=== PATIENT | female | born 1965 | race Caucasian/White ===

== ENCOUNTER 2024-11-17 14:03 | Observation (INO) | payer OTHER, SELFPAY ==
[2024-11-17] VITALS (21 sets, daily range): BP systolic 100–141; BP diastolic 60–83; PULSE 54–85; RESP 10–31; TEMP 36.3–37.1; O2SAT 93–100; BMI 24.2; BMI 24.3
--- NOTE | 2024-11-17 14:23 | RAD_ITS ---
PROCEDURE: CHEST 1 VIEW (PORTABLE) 11/17/2024 REASON FOR EXAM: CHEST PAIN TECHNIQUE: Frontal view of the chest. COMPARISON: CT from 11/17/2024 FINDINGS: Bibasilar opacities likely imaging artifact from pectus excavatum. No definite focal consolidations. No pleural effusion or pneumothorax. Moderate cardiomegaly. Right shoulder calcific tendinopathy. RAD/Chest 1 View (Portable) IMPRESSION: Bibasilar opacities likely imaging artifact from pectus excavatum. No definite focal consolidations. Moderate cardiomegaly. Reading Location: [id number]
--- NOTE | 2024-11-17 14:23 | EKG12_ITS ---
Test Reason : REPEAT Blood Pressure : */* mmHG Vent. Rate : 51 BPM Atrial Rate : 51 BPM P-R Int : 158 ms QRS Dur : 74 ms QT Int : 460 ms P-R-T Axes : 72 90 72 degrees QTcB Int : 423 ms Sinus bradycardia Rightward axis Cannot rule out Septal infarct , age undetermined Abnormal ECG Confirmed by Alok Howard ([id number]), clinical editor YOLANDE PEREZ ([id number]) on 11/20/2024 11:48:12 AM Referred By: Lon Arrington Confirmed By: Alok Howard
--- NOTE | 2024-11-17 14:23 | EKG12_ITS ---
Test Reason : REPEAT Blood Pressure : */* mmHG Vent. Rate : 51 BPM Atrial Rate : 51 BPM P-R Int : 158 ms QRS Dur : 74 ms QT Int : 460 ms P-R-T Axes : 72 90 72 degrees QTcB Int : 423 ms Sinus bradycardia Rightward axis Cannot rule out Septal infarct , age undetermined Abnormal ECG Confirmed by Alok Howard ([id number]), offline editor YOLANDE PEREZ ([id number]) on 11/20/2024 11:48:12 AM Referred By: Lon Arrington Confirmed By: Alok Howard
--- NOTE | 2024-11-17 14:23 | RAD_ITS ---
PROCEDURE: CHEST 1 VIEW (PORTABLE) 11/17/2024 REASON FOR EXAM: CHEST PAIN TECHNIQUE: Frontal view of the chest. COMPARISON: CT from 11/17/2024 FINDINGS: Bibasilar opacities likely imaging artifact from pectus excavatum. No definite focal consolidations. No pleural effusion or pneumothorax. Moderate cardiomegaly. Right shoulder calcific tendinopathy. RAD/Chest 1 View (Portable) IMPRESSION: Bibasilar opacities likely imaging artifact from pectus excavatum. No definite focal consolidations. Moderate cardiomegaly. Reading Location: [id number]
--- NOTE | 2024-11-17 14:29 | ED.VIS.CHEST ---
HPI History of Present Illness Chief Complaint: Chest Pain Informant: patient and family Narrative Narrative: Here with family worsening chest pain. Started few months ago over last 2 weeks more frequently. States worse with exertion. Reports dyspnea with exertion. No pain down the arms. No nausea no diaphoresis. Seen her PCP reports an echocardiogram is ordered and pending next month. No history of stress test. Family history of [place] at the age of 70 denies tobacco. Hypertension hyperlipidemia. Denies diabetes. No known coronary disease history. No recent travel or surgeries. No history of PE or DVT. States will get lightheaded symptoms with legs giving out when chest symptoms occur. CVD Risk Factors: Positive for Hypertension and Hypercholesterolemia; Negative for Diabetes, Family History 1' </=55 or Smoking PE Risk Factors: Negative for Recent Travel/Surgery, Recent Immobilization or Prior DVT or PE [facility] Medical History no medical history Home Medications ?Medication ?Instructions ?Recorded ?Last Taken ?Type metoprolol succinate 50 mg 25 mg PO DAILY 11/17/24 11/17/24 History tablet,extended release 24 hr quetiapine 100 mg tablet 100 mg PO QHS 11/17/24 11/16/24 History rosuvastatin 10 mg tablet 10 mg PO DAILY 11/17/24 11/16/24 History venlafaxine 75 mg capsule,extended 75 mg PO QPM 11/17/24 11/16/24 History release 24 hr Allergy/AdvReac Type Severity Reaction Status Date / Time No Known Allergies Allergy Verified 11/17/24 14:04 Family History no significant family his Surgical History no surgical history Social History Smoking Status: Never smoker [facility] ED Constitutional Constitutional ED: Denies chills, fever(s) or sweats ENT ENT ED: Denies sore throat Cardiovascular Cardiovascular: Reports chest pain; Denies leg edema, palpitations or racing heartbeat Respiratory/Chest Respiratory/Chest: Reports dyspnea and dyspnea on exertion; Denies cough Gastrointestinal Gastrointestinal: Denies abdominal pain, diarrhea, nausea or vomiting Genitourinary Genitourinary ED: Denies dysuria, hematuria or urinary frequency Musculoskeletal Musculoskeletal: Denies back pain, extremity pain or neck pain Integumentary Denies rash or wounds Neurologic Neurologic: Denies headache(s), paresthesias or weakness EXAM Physical Exam Const Vital Signs: 11/17/24 14:04 11/17/24 14:31 11/17/24 14:31 Temperature 98.1 F Temperature Source Oral Pulse Rate 75 68 Respiratory Rate 16 13 Blood Pressure 140/80 H 141/83 H Blood Pressure Mean 100 102 Pulse Ox 96 93 Oxygen Delivery Method Room Air Room Air Room Air 11/17/24 14:35 11/17/24 14:50 11/17/24 15:15 Temperature Temperature Source Pulse Rate 65 68 Respiratory Rate Blood Pressure 141/83 H 114/83 H 100/60 Blood Pressure Mean 72 Pulse Ox Oxygen Delivery Method 11/17/24 15:17 11/17/24 15:28 11/17/24 15:28 Temperature Temperature Source Pulse Rate 85 58 L 62 Respiratory Rate 31 H 15 Blood Pressure 112/68 112/68 Blood Pressure Mean 83 Pulse Ox 94 94 Oxygen Delivery Method Room Air 11/17/24 15:30 11/17/24 15:45 11/17/24 16:00 Temperature Temperature Source Pulse Rate 54 L 60 Respiratory Rate 15 13 Blood Pressure 101/67 102/67 Blood Pressure Mean 79 78 Pulse Ox 98 95 Oxygen Delivery Method Room Air 11/17/24 16:15 11/17/24 16:30 11/17/24 16:45 Temperature Temperature Source Pulse Rate 59 L 57 L Respiratory Rate 15 14 Blood Pressure 104/66 107/64 108/69 Blood Pressure Mean 79 79 82 Pulse Ox 96 96 Oxygen Delivery Method Room Air 11/17/24 17:00 11/17/24 17:15 11/17/24 17:30 Temperature Temperature Source Pulse Rate 57 L 60 Respiratory Rate 10 L 15 Blood Pressure 118/72 117/70 126/79 H Blood Pressure Mean 87 83 93 Pulse Ox 96 100 Oxygen Delivery Method Room Air 11/17/24 17:37 11/17/24 17:45 11/17/24 18:00 Temperature 98.7 F Temperature Source Pulse Rate 58 L 60 Respiratory Rate 16 Blood Pressure 126/79 H 124/69 H 124/76 H Blood Pressure Mean 86 92 Pulse Ox 97 98 Oxygen Delivery Method 11/17/24 18:00 Temperature Temperature Source Pulse Rate 60 Respiratory Rate 16 Blood Pressure 124/76 H Blood Pressure Mean 91 Pulse Ox 98 Oxygen Delivery Method Room Air Positive well nourished and well developed General Appearance ED: well developed and NAD HEENT Reports moist mucous membranes normocephalic and atraumatic Eyes General Eye ED: Yes normal appearance of both eyes Neck full ROM Chest Wall Chest: Negative for tenderness Resp normal respiratory effort and normal air movement Effort and Inspection: symmetric chest movement; Negative for respiratory distress Cardio regular rate, regular rhythm and no murmurs Peripheral Pulses: pulses 2+ throughout GI normal to inspection, nondistended, normoactive bowel sounds and non-tender Palpation: Negative for guarding or rebound tenderness present Extremity normal to inspection General Extremety ED: Negative for edema or tenderness General Extremity: Negative for edema Neuro oriented x3 and no sensory deficits noted Sensorium / Orientation: awake and alert Skin no rashes or lesions noted and no wounds Heart Score History: Moderately Suspicious ECG: Nonspecific Repolarization Age: >45 - <65 years Risk Factors: 1 or 2 Risk Factors Troponin: </= Normal Limit Score: 4 MDM MDM MDM Narrative Medical decision making narrative: Interventions / MDM: Differential diagnosis: Chest pain, angina, abnormal EKG Diagnosis considered but do not suspect: Pulmonary embolism however CT negative. My EKG interpretation: Sinus rate of 71, no ST changes. T wave inversions anterior leads of V1 and V2. No old for comparison. EKG #2 at 1732: Sinus rhythm no ST changes. T wave version anterior leads similar to first 1. Imaging independently reviewed and interpreted by myself: 1 view chest x-ray: No acute process. External documents reviewed: N/A Test considered but not ordered:N/A ED course: Patient worsening chest symptoms worse with exertion. EKG with T wave inversion anterior leads. Cardiac workup initiated. Aspirin nitroglycerin ordered. D-dimer with her exertional dyspnea. 1500: D-dimer 1.61. Hemoglobin 13.3. Chest x-ray negative. CT angiogram chest for further evaluation. 1730: CT angiogram chest negative for PE. Troponins negative x 2. Patient reported her pain was resolved after the third nitroglycerin. Pain just returned right before my evaluation states is a 5. Goes to her left arm. I will repeat EKG. Will order for Nitropaste. Discussed with patient plan for admission. 1800: Repeat EKG unchanged from first 1. With Nitropaste, symptoms are improving. I will discuss with hospitalist for admission. I discussed with Dr. Arrington for admission to PCU. Re-evaluation: stable Disposition discussed with patient/family/significant other: Patient and family Case discussed with consulting clinician: N/A This note was generated with Dragon dictation software. It may contain incorrect words, spelling, and punctuation that were not noted in checking the note before signing. Lab Data Attestation: I reviewed the patient's lab results. Labs: Laboratory Results - last 24 hr 11/17/24 11/17/24 14:20 16:20 WBC 3.7 L RBC 4.52 Hgb 13.3 Hct 40.9 MCV 90.5 MCH 29.4 MCHC 32.5 RDW Std Deviation 39.6 RDW Coeff of Lisa 12.0 Plt Count 138 L MPV 10.6 Immature Gran % (Auto) 0.800 Neut % (Auto) 54.3 Lymph % (Auto) 28.8 [place] % (Auto) 13.7 H Eos % (Auto) 1.9 Baso % (Auto) 0.5 Absolute Neuts (auto) 2.0 Absolute Lymphs (auto) 1.07 Nucleated RBC % 0 PT 12.8 INR 0.9 APTT 24.6 D-Dimer Quant (PE/DVT) 1.61 H* Sodium 139 Potassium 4.0 Chloride 102 Carbon Dioxide 26.4 Anion Gap 11 BUN 13 Creatinine 0.78 Estim Creat Clear Calc 65.40 Est GFR (MDRD) Non-Af 86 BUN/Creatinine Ratio 16.2 Glucose 113 H Calcium 9.1 Troponin T High Sens 7 Troponin T Hi Sens 2 Hr 6 Radiography Diagnostic Testing: Clinical Impression(s) from Imaging Studies Chest X-Ray 11/17/24 14:23 IMPRESSION: Bibasilar opacities likely imaging artifact from pectus excavatum. No definite focal consolidations. Moderate cardiomegaly. Reading Location: [facility] Chest CTA 11/17/24 15:02 IMPRESSION: 1. No acute pulmonary embolism. 2. Severe pectus excavatum deformity. Reading Location: [facility] Discharge Plan Triage Chief Complaint: Chest Pain ED Provider: Isaiah Schroeder Dx/Rx/DC Orders Clinical Impression: Chest pain, Angina of effort, Abnormal ECG, History of hypertension Primary Care Provider: Cr Vazquez Disposition Disposition: [facility]
[2024-11-17] MEDS: Aspirin 81 MG TAB.CHEW 324 MG PO (14:32)
[2024-11-17 14:34] LABS: Basophil% 0.5 % (0-1); Eosinophils% 1.9 % (0-5); Hematocrit 40.9 % (37-47); Hemoglobin 13.3 g/dL (12.0-15.0); Lymphocyte % 28.8 % (19-41); Mean Corp Hgb Conc 32.5 g/dL (32-36); Mean Corpuscular Hgb 29.4 pg (27.0-32.0); Mean Corpuscular Volume 90.5 fL (81-99); Mean Platelet Vol. 10.6 fl (6.2-12.0); Monocyte% 13.7 % (0-10); Neutrophil # 2.01 X10^3/uL (2.7-7.7); Neutrophil % 54.3 % (47-70); Platelet Count 138 K/mm3 (150-450); RBC Distribution Width SD 39.6 fl (35.1-43.9); Red Blood Count 4.52 M/mm3 (4.2-5.4); White Blood Count 3.7 K/mm3 (4.4-11.0)
[2024-11-17 14:35] LABS: Absolute Lymphocyte Count 1.07 X10^3/uL (0.83-4.51); Basophil# 0.02 X10^3/uL; Eosinophil# 0.07 X10^3/uL; Lymphocyte # 1.07 X10^3/ul (0.83-4.51); Monocyte# 0.51 X10^3/uL; NRBC Flagged by Analyzer 0 % (0-5)
[2024-11-17] MEDS: Nitroglycerin SL (ED/IMG/CATH) 0.4 MG TABLET SL ×3 (14:35→15:28)
[2024-11-17 14:42] LABS: International Normalized Ratio 0.9; Prothrombin Time (Protime)PT. 12.8 SECONDS (11.7-14.9)
[2024-11-17 14:43] LABS: Partial Thromboplast Time 24.6 Seconds (24.1-36.2)
--- OUTSIDE RECORDS SUMMARY | 2024-11-17 14:48 | XMS RPT_ITS | CCD ---
Author Organization [facility] Care Team Providers Care Strategic Sourcing Manager Name Role Phone Gloria Marinelli Primary Care Provider GLORIA ROBLES Primary Care Unavailable SNEHA MORGAN Attending Unavailable Gloria Robles Referring Unavailable Gloria Robles Attending Unavailable Gloria Robles Primary Care Unavailable Allergies Allergy Classification Reported Allergen(s) Allergy Type Date of Onset Reaction(s) Facility (1 source) Codeine Drug Allergy 08-12-2022 [facility] Medications Current Medications Medication Drug Class(es) Dates Sig (Normalized) Sig (Original) predniSONE 20 mg oral tablet (1 source) Start: 08-12-2022 predniSONE (DELTASONE) 20 MG tablet 2 tablets daily x3 days then 1 tablet daily 10 tablet 0 08/12/2022 Active QUEtiapine 100 mg oral tablet (1 source) Atypical Antipsychotic take 1 tablet by mouth once daily QUEtiapine (SEROQUEL) 100 MG tablet Take 100 mg by mouth daily 0 Active triamcinolone acetonide 1 mg/ml topical cream (1 source) Corticosteroid Start: 08-12-2022 triamcinolone (KENALOG) 0.1 % cream Apply topically 2 times daily. 80 g 1 08/12/2022 Active 24 hr venlafaxine 150 mg extended release oral capsule (1 source) Serotonin and Norepinephrine Reuptake Inhibitor take 1 capsule by mouth once daily venlafaxine (EFFEXOR XR) 150 MG extended release capsule Take 150 mg by mouth daily 0 Active Problems Problem Classification Problem Date Documented Da te Episodic/Chronic Allergic reactions (1 source) Irritant contact dermatitis; Translations: [Irritant contact dermatitis, unspecified cause] Episodic Conditions associated with dizziness or vertigo (1 source) Dizziness and giddiness; Translations: [Dizziness and giddiness] Onset: 03-07-2024 Episodic Headache; including migraine (1 source) Migraine, unspecified, not intractable, without status migrainosus; Translations: [Migraine, unspecified, not intractable, without status migrainosus] Onset: 03-07-2024 Chronic Other lower respiratory disease (1 source) Other forms of dyspnea; Translations: [Other forms of dyspnea] Onset: 11-12-2024 Episodic Other screening for suspected conditions (not mental disorders or infectious disease) (1 source) Abnormal findings on diagnostic imaging of other specified body structures; Translations: [Abnormal findings on diagnostic imaging of other specified body structures] Onset: 03-07-2024 Chronic Results Test Name Value Interpretation Reference Range Facil [facility] Basic Metabolic Profon 03-07 Anion gap [Moles/Vol] 10 mmol/L Normal 9-17 [facility] Comment on above: Performed By: #### B HOLLIE MOODY, CDP #### [facility] [address], [place] [id number] Health Screener: Anselmo Wilkinson MD BUN/CRE Ratio 21 High 9-20 [facility] Comment on above: Performed By: #### B HOLLIE MOODY, CDP #### [facility] [address], [place] [id number] Health Screener: Anselmo Wilkinson MD Calcium [Mass/Vol] 8.8 mg/dL Normal 8.6-10.4 [facility] Comment on above: Performed By: #### B HOLLIE MOODY, CDP #### [facility] [address], [place] [id number] Health Screener: Anselmo Wilkinson MD Chloride [Moles/Vol] 99 mmol/L Normal 98-107 [facility] Comment on above: Performed By: #### B HOLLIE MOODY, CDP #### [facility] [address], [place] [id number] Health Screener: Anselmo Wilkinson MD CO2 [Moles/Vol] 26 mmol/L Normal 20-31 [facility] Comment on above: Performed By: #### B HOLLIE MOODY, CDP #### [facility] [address], [place] [id number] Health Screener: Anselmo Wilkinson MD Creatinine [Mass/Vol] 0.7 mg/dL Normal 0.5-0.9 [facility] Comment on above: Performed By: #### B HOLLIE MOODY CDP #### [facility] [address], [place] [id number] Health Screener: Anselmo Wilkinson MD GFR/1.73 sq M.predicted among non-blacks MDRD (S/P/Bld) [Vol rate/Area] mL/min/{1.73_m2} Normal >60 [facility] Comment on above: Result Comment: These results are not intended for use in patients <18 years of age. eGFR results are calculated without a race factor using the 2020 CKD-EPI equation. Careful clinical correlation is recommended, particularly when comparing to results calculated using previous equations. The CKD-EPI equation is less accurate in patients with extremes of muscle mass, extra-renal metabolism of creatine, excessive creatine ingestion, or following therapy that affects renal tubular secretion. Performed By: #### B HOLLIE MOODY CDP #### [facility] [address] [place] [address] Health Screener: Anselmo Wilkinson MD Glucose [Mass/Vol] 91 mg/dL Normal 70-99 [facility] Comment on above: Performed By: #### B HOLLIE MOODY CDP #### [facility] [address] [place] [address] Health Screener: Anselmo Wilkinson MD Potassium [Moles/Vol] 4.4 mmol/L Normal 3.7-5.3 [facility] Comment on above: Performed By: #### B HOLLIE MOODY CDP #### [facility] [address] [place] [address] Health Screener: Anselmo Wilkinson MD Sodium [Moles/Vol] 135 mmol/L Normal 135-144 [facility] Comment on above: Performed By: #### B MP, NAYLA BROWNE #### [facility] [address] [place] [address] Health Screener: Anselmo Wilkinson MD Urea nitrogen [Mass/Vol] 15 mg/dL Normal 8-23 [facility] Comment on above: Performed By: #### B HOLLIE MOODY CDP #### [facility] [address] [place] [id number] Health Screener: Anselmo Wilkinson MD CBC with Diffon 03-07-2024 Abs. Basophil 0.01 k/uL Normal 0.00-0.20 [facility] Comment on above: Performed By: #### B HOLLIE MOODY CDP #### [facility] [address] [place] [address] Health Screener: Anselmo Wilkinson MD Abs.Imm.Granulocyte 0.03 k/uL Normal 0.00-0.30 [facility] Comment on above: Performed By: #### B HOLLIE MOODY CDP #### [facility] [address] [place] [id number] Health Screener: Anselmo Wilkinson MD Abs.Neutrophil (Seg) 3.98 k/uL Normal 2.5-7.0 [facility] Comment on above: Performed By: #### B HOLLIE MOODY CDP #### [facility] [address] [place] [address] Health Screener: Anselmo Wilkinson MD Basophils/100 WBC (Bld) 0 % Normal 0-2 [facility] Comment on above: Performed By: #### B HOLLIE MOODY CDP #### [facility] [address] [place] [phone] Health Screener: Anselmo Wilkinson MD Eosinophils (Bld) [#/Vol] 0.16 10*3/uL Normal 0.00-0.40 [facility] Comment on above: Performed By: #### B HOLLIE MOODY, CDP #### [facility] [address], [place] [id number] Health Screener: Anselmo Wilkinson MD Eosinophils/100 WBC (Bld) 3 % Normal 0-5 [facility] Comment on above: Performed By: #### B HOLLIE MOODY, NAYLA #### [facility] [address] [place] [address] Health Screener: Anselmo Wilkinson MD Erythrocyte distribution width (RBC) [Ratio] 11.8 % Low 12.1-15.2 [facility] Comment on above: Performed By: #### B HOLLIE MOODY, CDP #### [facility] [address], [place] [id number] Health Screener: Anselmo Wilkinson MD Hematocrit (Bld) [Volume fraction] 45.4 % Normal 36.0-46.0 [facility] Comment on above: Performed By: #### B HOLLIE MOODY, CDP #### [facility] [address], [place] [id number] Health Screener: Anselmo Wilkinson MD Hemoglobin (Bld) [Mass/Vol] 15.4 g/dL Normal 12.0-16.0 [facility] Comment on above: Performed By: #### B HOLLIE MOODY CDP #### [facility] [address], [place] [id number] Health Screener: Anselmo Wilkinson MD Immature granulocytes/100 WBC (Bld) 1 % Normal 0-5 [facility] Comment on above: Performed By: #### B HOLLIE MOODY, CDP #### [facility] [address], [place] [phone] Health Screener: Anselmo Wilkinson MD Lymphocytes (Bld) [#/Vol] 0.90 10*3/uL Low 1.00-4.80 [facility] Comment on above: Performed By: #### B HOLLIE MOODY, CDP #### [facility] [address] [place] [address] Health Screener: Anselmo Wilkinson MD Lymphocytes/100 WBC (Bld) 16 % Normal 15-40 [facility] Comment on above: Performed By: #### B HOLLIE MOODY, CDP #### [facility] [address] [place] [address] Health Screener: Anselmo Wilkinson MD MCH (RBC) [Entitic mass] 29.8 pg Normal 26.0-34.0 [facility] Comment on above: Performed By: #### B HOLLIE MOODY, CDP #### [facility] [address] [place] [address] Health Screener: Anselmo Wilkinson MD MCHC (RBC) [Mass/Vol] 33.9 g/dL Normal 31.0-37.0 [facility] Comment on above: Performed By: #### B HOLLIE MOODY, CDP #### [facility] [address] [place] [address] Health Screener: Anselmo Wilkinson MD MCV (RBC) [Entitic vol] 88.0 fL Normal 80.0-100.0 [facility] Comment on above: Performed By: #### B HOLLIE MOODY, CDP #### [facility] [address] [place] [address] Health Screener: Anselmo Wilkinson MD Monocytes (Bld) [#/Vol] 0.51 10*3/uL Normal 0.00-1.00 [facility] Comment on above: Performed By: #### B HOLLIE MOODY, CDP #### [facility] [address] [place] [address] Health Screener: Anselmo Wilkinson MD Monocytes/100 WBC (Bld) 9 % High 4-8 [facility] Comment on above: Performed By: #### B HOLLIE MOODY, CDP #### [facility] [address] [place] [address] Health Screener: Anselmo Wilkinson MD Neutrophil (Seg) 71 % Normal 47-75 [facility] Comment on above: Performed By: #### B HOLLIE MOODY, CDP #### [facility] [address] [place], [place] [phone] ([phone]) Health Screener: Anselmo Wilkinson MD Platelet mean volume (Bld) [Entitic vol] 10.0 fL Normal 6.0-12.0 [facility] Comment on above: Performed By: #### B HOLLIE MOODY, CDP #### [facility] [address] [place] [address] Health Screener: Anselmo Wilkinson MD Platelets (Bld) [#/Vol] 149 10*3/uL Normal 140-450 [facility] Comment on above: Performed By: #### B HOLLIE MOODY, CDP #### [facility] [address] [place] [address] Health Screener: Anselmo Wilkinson MD RBC (Bld) [#/Vol] 5.16 10*6/uL Normal 4.00-5.20 [facility] Comment on above: Performed By: #### B HOLLIE MOODY, CDP #### [facility] [address], [place] [phone] (219) Health Screener: Anselmo Wilkinson MD WBC (Bld) [#/Vol] 5.6 10*3/uL Normal 3.5-11.0 [facility] Comment on above: Performed By: #### B HOLLIE MOODY, CDP #### [facility] [address] [place] [phone] Health Screener: Anselmo Wilkinson MD CT HEAD WO CONTRASTon 2023 CT HEAD WO CONTRAST EXAMINATION: CT HEAD WO CONTRAST HISTORY: dizziness, severe, intermittent for 2 months, much worse today, no trauma COMPARISON: None. TECHNIQUE: CT examination of the head without IV contrast. Dose reduction techniques were achieved by using automated exposure control and/or adjustment of mA and/or kV according to patient size and/or use of iterative reconstruction technique. FINDINGS: No acute intracranial hemorrhage or extra-axial collection, or midline shift. The white matter appears unremarkable. Slightly age-appropriate prominence of the ventricles with respect to the cortical sulci. Posterior fossa appears unremarkable. Orbits appear unremarkable. Visualized paranasal sinuses are clear. Mastoids are well-aerated. The calvarium appears intact. Soft tissues appear unremarkable. IMPRESSION: No acute intracranial abnormality. Slightly greater than age-appropriate prominence of the ventricles with respect to the cortical sulci. Such findings can be seen with normal pressure hydrocephalus. Clinical correlation is suggested. Interpreted by: Maribel Esteban MD Signed by: Maribel Esteban MD 03/07/24 Final result Normal [facility] Troponinon 03-07-2024 Troponin, High Sens 8 ng/L Normal 0-14 [facility] Comment on above: Result Comment: High Sensitivity Troponin values cannot be compared with other Troponin methodologies. Performed By: #### B MP, TROPI, CDP #### [facility] [address] [place] [address] Health Screener: Anselmo Wilkinson MD Urinalysis, Routineon 2023 Bilirubin, SemiQt,Ur Negative Normal NEG [facility] Comment on above: Performed By: #### U A #### [facility] [address] [place], [place] [phone] Health Screener: Anselmo Wilkinson MD Blood, Urine Negative Normal NEG [facility] Comment on above: Performed By: #### U A #### [facility] [address] [place] [address] Health Screener: Anselmo Wilkinson MD Clarity (U) Clear Normal CLEAR [facility] Comment on above: Performed By: #### U A #### [facility] [address], [place] [id number] Health Screener: Anselmo Wilkinson MD Color (U) Yellow Normal YEL [facility] Comment on above: Performed By: #### U A #### [facility] [address], [place] [id number] Health Screener: Anselmo Wilkinson MD Comment Normal [facility] Comment on above: Performed By: #### U A #### [facility] [address], [place] [phone] Health Screener: Anselmo Wilkinson MD Glucose Ql (U) Negative Normal NEG [facility] Comment on above: Performed By: #### U A #### [facility] [address], [place] [address] Health Screener: Anselmo Wilkinson MD Ketones Ql (U) Negative Normal NEG [facility] Comment on above: Performed By: #### U A #### [facility] [address] [place] [address] Health Screener: Anselmo Wilkinson MD Leukocyte esterase Test strip Ql (U) Negative Normal NEG [facility] Comment on above: Performed By: #### U A #### [facility] [address] [place] [address] Health Screener: Anselmo Wilkinson MD Nitrite,Ur Negative Normal NEG [facility] Comment on above: Performed By: #### U A #### [facility] [address] [place] [address] Health Screener: Anselmo Wilkinson MD PH,Ur 5.0 Normal 5.0-8.0 [facility] Comment on above: Performed By: #### U A #### [facility] [address] [place] [address] Health Screener: Anselmo Wilkisnon MD Protein Ql (U) Negative Normal NEG [facility] Comment on above: Performed By: #### U A #### [facility] [address] [place] [address] Health Screener: Anselmo Wilkinson MD Spec. [place],Ur 1.010 Normal 1.005-1.030 [facility] Comment on above: Performed By: #### U A #### [facility] [address] [place] [address] Health Screener: Anselmo Wilkinson MD Urobilinogen,Ur Normal Normal 0.0-1.0 [facility] Comment on above: Performed By: #### U A #### [facility] [address] [place] [address] Health Screener: Anselmo Wilkinson MD CBC with Auto Differentialon 08-12-2022 Absolute Eos # 0.10 [facility] Absolute Lymph # 1.40 [place] [facility] Absolute [place] # 0.60 [facility] Basophils (Bld) [#/Vol] 0.00 10*3/uL [facility] Basophils/100 WBC (Bld) 0 % 0 - 2 % [facility] Differential Type YES [facility] Eosinophils/100 WBC (Bld) 1 % 0 - 5 % [facility] Hematocrit (Bld) [Volume fraction] 39.0 % 36 - 46 % [facility] Hemoglobin (Bld) [Mass/Vol] 12.8 g/dL 12.0 - 16.0 g/dL [facility] Interpretation and review of laboratory results Abnormal [facility] Lymphocytes/100 WBC (Bld) 14 % Low 15 - 40 % [facility] MCH (RBC) [Entitic mass] 29.9 pg 26 - 34 pg [facility] MCHC (RBC) [Mass/Vol] 32.9 g/dL 31 - 37 g/dL [facility] MCV (RBC) [Entitic vol] 90.8 fL 80 - 100 fL [facility] Monocytes/100 WBC (Bld) 6 % 4 - 8 % [facility] Platelet distribution width (Bld) [Ratio] 13.3 % 12.1 - 15.2 % [facility] Platelets (Bld) [#/Vol] 159 10*3/uL [facility] RBC (Bld) [#/Vol] 4.30 10*6/uL 4.0 - 5.2 m/uL [facility] Segmented neutrophils/100 WBC (Bld) 79 % High 47 - 75 % [facility] Segs Absolute 7.70 High [facility] WBC (Bld) [#/Vol] 9.8 10*3/uL [facility] Comprehensive Metabolic Pane judd 08-12-2022 Albumin [Mass/Vol] 3.5 g/dL 3.5 - 5.2 g/dL [facility] ALP [Catalytic activity/Vol] 103 U/L 35 - 104 U/L [facility] ALT [Catalytic activity/Vol] 60 U/L High 5 - 33 U/L [facility] Anion gap [Moles/Vol] 13 mmol/L 9 - 17 mmol/L [facility] AST [Catalytic activity/Vol] 52 U/L High NINF - 32 U/L [facility] Bilirubin [Mass/Vol] 0.4 mg/dL 0.3 - 1.2 mg/dL [facility] Calcium [Mass/Vol] 8.7 mg/dL 8.6 - 10. 4 mg/dL [facility] Chloride [Moles/Vol] 95 mmol/L Low 98 - 107 mmol/L [facility] CO2 [Moles/Vol] 28 mmol/L 20 - 31 mmol/L [facility] Creatinine [Mass/Vol] 0.67 mg/dL 0.50 - 0.90 mg/dL [facility] GFR/1.73 sq M.predicted MDRD (S/P/Bld) [Vol rate/Area] - PINF [facility] Comment on above: These results are not intended for use in patients <18 years of age. eGFR results are calculated without a race factor using the 2020 CKD-EPI equation. Careful clinical correlation is recommended, particularly when comparing to results calculated using previous equations. The CKD-EPI equation is less accurate in patients with extremes of muscle mass, extra-renal metabolism of creatine, excessive creatine ingestion, or following therapy that affects renal tubular secretion. Glucose [Mass/Vol] 155 mg/dL High 70 - 99 mg/dL [facility] Interpretation and review of laboratory results Abnormal [facility] Potassium [Moles/Vol] 3.5 mmol/L Low 3.7 - 5.3 mmol/L [facility] Protein [Mass/Vol] 6.5 g/dL 6.4 - 8.3 g/dL [facility] Sodium [Moles/Vol] 136 mmol/L 135 - 144 mmol/L [facility] Urea nitrogen [Mass/Vol] 10 mg/dL 6 - 20 mg/dL [facility] Urea nitrogen/Creatinine (Bld) [Mass ratio] 15 9 - 20 [facility] Vital Signs Date Time Vital Sign Value Performing Clinician Gearldo noriega 08-12-2022 20:02-0400 Body temperature 98.8 [degF] Uvaldo Ibarra MD Work Phone: [facility] 08-12-2022 20:02-0400 Diastolic blood pressure 85 mm[Hg] Uvaldo Ibarar MD Work Phone: [facility] 08-12-2022 20:02-0400 Heart rate 94 /min Uvaldo Ibarra MD Work Phone: [facility] 08-12-2022 20:02-0400 Respiratory rate 20 /min Uvaldo Ibarra MD Work Phone: [facility] 08-12-2022 20:02-0400 SaO2% (BldA) [Mass fraction] 96 % Uvaldo Ibarra MD Work Phone: [facility] 08-12-2022 20:02-0400 Systolic blood pressure 129 mm[Hg] Uvaldo Ibarra MD Work Phone: [facility] 08-12-2022 18:35-0400 Body height 162.6 cm Uvaldo Ibarra MD Work Phone: [facility] 08-12-2022 18:35-0400 Body mass index (BMI) [Ratio] 23.34 kg/m2 Uvaldo Ibarra MD Work Phone: [facility] [employer] [facility] 08-12-2022 18:35-0400 Body weight 61.69 kg Uvaldo Ibarra MD Work Phone: [facility] [employer] Encounters Encounter Date Encounter Type Care Provider Facility Start: 12-19-2024 ambulatory [facility] Facility:[facility] Start: 03-07-2024 End: 03-07-2024 Emergency department patient visit [facility] Maria De Jesus [facility] Start: 08-12-2022 End: 08-12-2022 Emergency department patient visit Uvaldo Ibarra MD Work Phone: [facility] ED Comment on above: Irritant contact margie matitis, unspecified trigger (Primary Dx) Procedures Date Procedure Procedure Detail Performing Clinician Start: 08-12-2022 Comprehensive metabo lic panel Uvaldo Ibarra MD Work Phone: Plan of Treatment Date Care Activity Detail Author Start: 12-28-2021 Influenza vaccination Flu vaccine (# 1) [facility] [employer] Start: 2013 Screening for malign ant neoplasm of breast Breast cancer screen [facility] [employer] Start: 2013 Shingles vaccine (1 of 2) Shingles vaccine (1 of 2) [facility] Start: 02-20-2008 Screening for malign ant neoplasm of colon [facility] [employer] Start: 2003 Lipid panel Lipids [facility] Start: 1993 Screening for malign ant neoplasm of cervix [facility] Start: 02-20-1984 Screening for malign ant neoplasm of cervix Pap smear [facility] [employer] [facility] Start: 1982 DTaP/Tdap/Td vaccine (1 - Tdap) DTaP/Tdap/Td vaccine ( - Tdap) [facility] Start: 1981 Hepatitis C screening Hepatitis C sc reen [facility] Start: 1978 HIV screening HIV screen [facility] Start: 1975 Depression Screen Depression Screen [facility] [employer] Start: 1963 COVID-19 Vaccine (#1) COVID-19 Vacci ne (#1) [employer] Payers Date Payer Category Payer Self-pay 2024 Unknown [id number] 2014 Unknown [id number] 1963 Unknown [id number] Unknown [id number] Social History Date Type Detail Facility Start: 08-12-2022 Tobacco smoking stat [facility] Never smoked tobacco [employer] Phone: Start: 08-12-2022 Tobacco use and exposure Smokeless tobacco non-user [employer] Phone: Start: 08-12-2022 Alcohol intake Lifetime non-d soco (finding) [employer] Phone: Start: 1965 Sex Assigned At Not on file B ON [employer] Phone: Start: 08-02-2022 End: 08-12-2022 Exposure to SARS-CoV-2 (event) Not sure [employer] Phone: Evaluation note Note Date & Type Note Facility Evaluation note Diagnosis Irritant contact dermatitis, unspecified trigger- Primary documented in this encounter [employer] Phone: Hospital Discharge instructions Attachments Note Date & Type Note Facility Hospital Discharge instructions The following attachments cannot be sent through Care Everywhere.Dermatitis (Estonian)documented in this encounter [employer] Phone: Summary Purpose Family History No Family History Records FoundNo Family History Records Found Advance Directives No Advanced Directives Records FoundNo Advanced Directives Records Found Additional Source Comments Reason for Visit (unrecogniz ed section and content) Reason Comments Cellulitis Patient states she w as seen in [facility] on Tuesday for cellulitis on the left ear, started on Augmentin, now redness has increased around head, fever, rash, and increase head pain. Was sent here by Dr. Ring. Ordered Prescriptions (unrec ognized section and content) Prescription Sig Dispensed Refills Start Date End Da te predniSONE (DELTASONE) 20 MG tablet 2 tablets daily x3 days then 1 tablet daily 10 tablet 0 08/12/2022 triamcinolone (KENALOG) 0.1 % cream Apply topically 2 times daily. 80 g 1 08/12/2022 Care Teams (unrecognized sec tion and content) Strategic Sourcing Manager Relationship Specialty Start Date End Date Gloria Robles, JACKIE [id number] [id number] PCP - General Physician Draw Off Worker 08/12/22 INFORMATION SOURCE (unrecogn ized section and content) DATE CREATED AUTHOR 03/09/2024 Aiyana cooley DATE CREATED AUTHOR AUTHOR'S ORGANIZ ATION 11/13/2024 [facility] FOR RECORDS PERTAINING TO PATIENTS WHO ARE OR HAVE BEEN ENROLLED IN A CHEMICAL DEPENDENCY/SUBSTANCEABUSE PROGRAM, SOME INFORMATION MAY BE OMITTED. This clinical summary was aggregated from multiple sources. Caution should be exercised in using it in the provision of clinical care. This summary normalizes information from multiple sources, and as a consequence, information in this document may materially change the coding, format and clinical context of patient data. In addition, data may be omitted in some cases. CLINICAL DECISIONS SHOULD BE BASED ON THE PRIMARY CLINICAL RECORDS. [employer] provides no warranty or guarantee of the accuracy or completeness of information in this document.
--- OUTSIDE RECORDS SUMMARY | 2024-11-17 14:48 | XMS RPT_ITS | CCD ---
Author Organization [facility] Care Team Providers Care Rail Signal Mechanic Name Role Phone Gloria Marinelli Primary Care Provider GOLRIA ROBLES Primary Care Unavailable SNEHA MORGAN Attending Unavailable Gloria Robles Referring Unavailable Gloria Robles Attending Unavailable Gloria Robles Primary Care Unavailable Allergies Allergy Classification Reported Allergen(s) Allergy Type Date of Onset Reaction(s) Facility (1 source) Codeine Drug Allergy 08-12-2022 [facility] Medications Current Medications Medication Drug Class(es) Dates [...] Test Name Value Interpretation Reference Range Facil [facility] Basic Metabolic Profon 03-07 Anion gap [Moles/Vol] 10 mmol/L Normal 9-17 [facility] Comment on above: Performed By: #### B HOLLIE MOODY, CDP #### [facility] [address] [place], [place] [phone] Retirement Assistant: Anselmo Wilkinson MD BUN/CRE Ratio 21 High 9-20 [facility] Comment on above: Performed By: #### B HOLLIE MOODY, CDP #### [facility] [address] [place], [place] [phone] Retirement Assistant: Anselmo Wilkinson MD Calcium [Mass/Vol] 8.8 mg/dL Normal 8.6-10.4 [facility] Comment on above: Performed By: #### B HOLLIE MOODY, CDP #### [facility] [address] [place], [place] [phone] Retirement Assistant: Anselmo Wilkinson MD Chloride [Moles/Vol] 99 mmol/L Normal 98-107 [facility] Comment on above: Performed By: #### B HOLLIE MOODY, CDP #### [facility] [address] [place], [place] [phone] Retirement Assistant: Anselmo Wilkinson MD CO2 [Moles/Vol] 26 mmol/L Normal 20-[address] [facility] Comment on above: Performed By: #### B HOLLIE MOODY, CDP #### [facility] [address] [place], [place] [phone] Retirement Assistant: Anselmo Wilkinson MD Creatinine [Mass/Vol] 0.7 mg/dL Normal 0.5-0.9 [facility] Comment on above: Performed By: #### B HOLLIE MOODY CDP #### [facility] [address] [place], [place] [phone] Retirement Assistant: Anselmo Wilkinson MD GFR/1.73 sq M.predicted among non-blacks MDRD (S/P/Bld) [Vol rate/Area] mL/min/{1.73_m2} Normal >60 [facility] Comment on above: Result Comment: These [...] By: #### B HOLLIE MOODY CDP #### [facility] [address] [place] [address] Retirement Assistant: Anselmo Wilkinson MD Glucose [Mass/Vol] 91 mg/dL Normal 70-99 [facility] Comment on above: Performed By: #### B HOLLIE MOODY CDP #### [facility] [address] [place] [address] Retirement Assistant: Anselmo Wilkinson MD Potassium [Moles/Vol] 4.4 mmol/L Normal 3.7-5.3 [facility] Comment on above: Performed By: #### B HOLLIE MOODY CDP #### [facility] [address] [place] [address] Retirement Assistant: Anselmo Wilkinson MD Sodium [Moles/Vol] 135 mmol/L Normal 135-144 [facility] Comment on above: Performed By: #### B MP, NAYLA BROWNE #### [facility] [address] [place] [address] Retirement Assistant: Anselmo Wilkinson MD Urea nitrogen [Mass/Vol] 15 mg/dL Normal 8-23 [facility] Comment on above: Performed By: #### B HOLLIE MOODY CDP #### [facility] [address] [place] [phone] Retirement Assistant: Anselmo Wilkinson MD CBC with Diffon 03-07-2024 Abs. Basophil 0.01 k/uL Normal 0.00-0.20 [facility] Comment on above: Performed By: #### B HOLLIE MOODY CDP #### [facility] [address] [place] [address] Retirement Assistant: Anselmo Wilkinson MD Abs.Imm.Granulocyte 0.03 k/uL Normal 0.00-0.30 [facility] Comment on above: Performed By: #### B HOLLIE MOODY CDP #### [facility] [address] [place] [phone] Retirement Assistant: Anselmo Wilkinson MD Abs.Neutrophil (Seg) 3.98 k/uL Normal 2.5-7.0 [facility] Comment on above: Performed By: #### B HOLLIE MOODY CDP #### [facility] [address] [place] [address] Retirement Assistant: Anselmo Wilkinson MD Basophils/100 WBC (Bld) 0 % Normal 0-2 [facility] Comment on above: Performed By: #### B HOLLIE MOODY CDP #### [facility] [address] [place] [phone] Retirement Assistant: Anselmo Wilkinson MD Eosinophils (Bld) [#/Vol] 0.16 10*3/uL Normal 0.00-0.40 [facility] Comment on above: Performed By: #### B HOLLIE MOODY, CDP #### [facility] [address] [place], [place] [phone] Retirement Assistant: Anselmo Wilkinson MD Eosinophils/100 WBC (Bld) 3 % Normal 0-5 [facility] Comment on above: Performed By: #### B HOLLIE MOODY, NAYLA #### [facility] [address] [place] [address] Retirement Assistant: Anselmo Wilkinson MD Erythrocyte distribution width (RBC) [Ratio] 11.8 % Low 12.1-15.2 [facility] Comment on above: Performed By: #### B HOLLIE MOODY, CDP #### [facility] [address] [place], [place] [phone] Retirement Assistant: Anselmo Wilkinson MD Hematocrit (Bld) [Volume fraction] 45.4 % Normal 36.0-46.0 [facility] Comment on above: Performed By: #### B HOLLIE MOODY, CDP #### [facility] [address] [place], [place] [phone] Retirement Assistant: Anselmo Wilkinson MD Hemoglobin (Bld) [Mass/Vol] 15.4 g/dL Normal 12.0-16.0 [facility] Comment on above: Performed By: #### B HOLLIE MOODY CDP #### [facility] [address] [place], [place] [phone] Retirement Assistant: Anselmo Wilkinson MD Immature granulocytes/100 WBC (Bld) 1 % Normal 0-5 [facility] Comment on above: Performed By: #### B HOLLIE MOODY, CDP #### [facility] [address] [place], [place] [phone] Retirement Assistant: Anselmo Wilkinson MD Lymphocytes (Bld) [#/Vol] 0.90 10*3/uL Low 1.00-4.80 [facility] Comment on above: Performed By: #### B HOLLIE MOODY, CDP #### [facility] [address] [place] [address] Retirement Assistant: Anselmo Wilkinson MD Lymphocytes/100 WBC (Bld) 16 % Normal 15-40 [facility] Comment on above: Performed By: #### B HOLLIE MOODY, CDP #### [facility] [address] [place] [address] Retirement Assistant: Anselmo Wilkinson MD MCH (RBC) [Entitic mass] 29.8 pg Normal 26.0-34.0 [facility] Comment on above: Performed By: #### B HOLLIE MOODY, CDP #### [facility] [address] [place] [address] Retirement Assistant: Anselmo Wilkinson MD MCHC (RBC) [Mass/Vol] 33.9 g/dL Normal 31.0-37.0 [facility] Comment on above: Performed By: #### B HOLLIE MOODY, CDP #### [facility] [address] [place] [address] Retirement Assistant: Anselmo Wilkinson MD MCV (RBC) [Entitic vol] 88.0 fL Normal 80.0-100.0 [facility] Comment on above: Performed By: #### B HOLLIE MOODY, CDP #### [facility] [address] [place] [address] Retirement Assistant: Anselmo Wilkinson MD Monocytes (Bld) [#/Vol] 0.51 10*3/uL Normal 0.00-1.00 [facility] Comment on above: Performed By: #### B HOLLIE MOODY, CDP #### [facility] [address] [place] [address] Retirement Assistant: Anselmo Wilkinson MD Monocytes/100 WBC (Bld) 9 % High 4-8 [facility] Comment on above: Performed By: #### B HOLLIE MOODY, CDP #### [facility] [address] [place] [address] Retirement Assistant: Anselmo Wilkinson MD Neutrophil (Seg) 71 % Normal 47-75 [facility] Comment on above: Performed By: #### B HOLLIE MOODY, CDP #### [facility] [address] [place], [place] [phone] Retirement Assistant: Anselmo Wilkinson MD Platelet mean volume (Bld) [Entitic vol] 10.0 fL Normal 6.0-12.0 [facility] [place] Comment on above: Performed By: #### B HOLLIE MOODY, CDP #### [facility] [address] [place] [address] Retirement Assistant: Anselmo Wilkinson MD Platelets (Bld) [#/Vol] 149 10*3/uL Normal 140-450 [facility] Comment on above: Performed By: #### B HOLLIE MOODY, CDP #### [facility] [address] [place] [address] Retirement Assistant: Anselmo Wilkinson MD RBC (Bld) [#/Vol] 5.16 10*6/uL Normal 4.00-5.20 [facility] Comment on above: Performed By: #### B HOLLIE MOODY, CDP #### [facility] [address] [place], [place] [phone] ([phone] Retirement Assistant: Anselmo Wilkinson MD WBC (Bld) [#/Vol] 5.6 10*3/uL Normal 3.5-11.0 [facility] Comment on above: Performed By: #### B HOLLIE MOODY, CDP #### [facility] [address] [place] [phone] Retirement Assistant: Anselmo Wilkinson MD CT HEAD WO CONTRASTon [...] Maribel Esteban MD 03/07/24 Final result Normal [facility] Troponinon 03-07-2024 Troponin, High Sens 8 ng/L Normal 0-14 [facility] Comment on above: Result Comment: High Sensitivity Troponin values cannot be compared with other Troponin methodologies. Performed By: #### B MP, TROPI, CDP #### [facility] [address] [place] [address] Retirement Assistant: Anselmo Wilkinson MD Urinalysis, Routineon 2023 Bilirubin, SemiQt,Ur Negative Normal NEG [facility] Comment on above: Performed By: #### U A #### [facility] [address] [place], [place] [phone] Retirement Assistant: Anselmo Wilkinson MD Blood, Urine Negative Normal NEG [facility] [place] Comment on above: Performed By: #### U A #### [facility] [address] [place] [address] Retirement Assistant: Anselmo Wilkinson MD Clarity (U) Clear Normal CLEAR [facility] Comment on above: Performed By: #### U A #### [facility] [address] [place], [place] [phone] Retirement Assistant: Anselmo Wilkinson MD Color (U) Yellow Normal YEL [facility] Comment on above: Performed By: #### U A #### [facility] [address] [place], [place] [phone] Retirement Assistant: Anselmo Wilkinson MD Comment Normal [facility] Comment on above: Performed By: #### U A #### [facility] [address] [place], [place] [phone] Retirement Assistant: Anselmo Wilkinson MD Glucose Ql (U) Negative Normal NEG [facility] Comment on above: Performed By: #### U A #### [facility] [address] [place], [place] [phone] Retirement Assistant: Anselmo Wilkinson MD Ketones Ql (U) Negative Normal NEG [facility] Comment on above: Performed By: #### U A #### [facility] [address] [place] [address] Retirement Assistant: Anselmo Wilkinson MD Leukocyte esterase Test strip Ql (U) Negative Normal NEG [facility] Comment on above: Performed By: #### U A #### [facility] [address] [place] [address] Retirement Assistant: Anselmo Wilkinson MD Nitrite,Ur Negative Normal NEG [facility] Comment on above: Performed By: #### U A #### [facility] [address] [place] [address] Retirement Assistant: Anselmo Wilkinson MD PH,Ur 5.0 Normal 5.0-8.0 [facility] Comment on above: Performed By: #### U A #### [facility] [address] [place] [address] Retirement Assistant: Anselmo Wilkinson MD Protein Ql (U) Negative Normal NEG [facility] Comment on above: Performed By: #### U A #### [facility] [address] [place] [address] Retirement Assistant: Anselmo Wilkinson MD Spec. [place],Ur 1.010 Normal 1.005-1.030 [facility] Comment on above: Performed By: #### U A #### [facility] [address] [place] [address] Retirement Assistant: Anselmo Wilkinson MD Urobilinogen,Ur Normal Normal 0.0-1.[address] [facility] Comment on above: Performed By: #### U A #### [facility] [address] [place] [address] Retirement Assistant: Anselmo Wilkinson MD CBC with Auto Differentialon 08-12-2022 Absolute Eos # 0.10 [facility] Absolute Lymph # 1.40 [place] [facility] Absolute [place] # 0.60 [facility] Basophils (Bld) [#/Vol] 0.00 10*3/uL [facility] Basophils/100 WBC (Bld) 0 % 0 - 2 % [facility] Differential Type YES [facility] Eosinophils/100 WBC (Bld) 1 % 0 - 5 % [facility] Hematocrit (Bld) [Volume fraction] 39.0 % 36 - 46 % [facility] Hemoglobin (Bld) [Mass/Vol] 12.8 g/dL 12.0 - 16.0 g/dL [facility] Interpretation and review of laboratory results Abnormal [facility] Lymphocytes/100 WBC (Bld) 14 % Low 15 - 40 % [facility] MCH (RBC) [Entitic mass] 29.9 pg 26 - 34 pg [facility] MCHC (RBC) [Mass/Vol] 32.9 g/dL 31 - 37 g/dL B ON [facility] MCV (RBC) [Entitic vol] 90.8 fL 80 - 100 fL [facility] Monocytes/100 WBC (Bld) 6 % 4 - 8 % [facility] Platelet distribution width (Bld) [Ratio] 13.3 % 12.1 - 15.2 % [facility] Platelets (Bld) [#/Vol] 159 10*3/uL [facility] RBC (Bld) [#/Vol] 4.30 10*6/uL 4.0 - 5.2 m/uL B ON [facility] Segmented neutrophils/100 WBC (Bld) 79 % High 47 - 75 % [facility] Segs Absolute 7.70 High [facility] WBC (Bld) [#/Vol] 9.8 10*3/uL [facility] Comprehensive Metabolic Pane judd 08-12-2022 Albumin [Mass/Vol] 3.5 g/dL 3.5 - 5.2 g/dL [facility] ALP [Catalytic activity/Vol] 103 U/L 35 - 104 U/L [facility] ALT [Catalytic activity/Vol] 60 U/L High 5 - 33 U/L [facility] Anion gap [Moles/Vol] 13 mmol/L 9 - 17 mmol/L [facility] AST [Catalytic activity/Vol] 52 U/L High NINF - 32 U/L [facility] Bilirubin [Mass/Vol] 0.4 mg/dL 0.3 - 1.2 mg/dL [facility] Calcium [Mass/Vol] 8.7 mg/dL 8.6 - 10. 4 mg/dL [facility] Chloride [Moles/Vol] 95 mmol/L Low 98 - 107 mmol/L [facility] CO2 [Moles/Vol] 28 mmol/L 20 - 31 mmol/L [facility] Creatinine [Mass/Vol] 0.67 mg/dL 0.50 - 0.90 mg/dL [facility] GFR/1.73 sq M.predicted MDRD (S/P/Bld) [Vol rate/Area] - PINF [facility] Comment on above: These results are not [...] 155 mg/dL High 70 - 99 mg/dL [facility] Interpretation and review of laboratory results Abnormal [facility] Potassium [Moles/Vol] 3.5 mmol/L Low 3.7 - 5.3 mmol/L [facility] Protein [Mass/Vol] 6.5 g/dL 6.4 - 8.3 g/dL [facility] Sodium [Moles/Vol] 136 mmol/L 135 - 144 mmol/L [facility] Urea nitrogen [Mass/Vol] 10 mg/dL 6 - 20 mg/dL [facility] Urea nitrogen/Creatinine (Bld) [Mass ratio] 15 9 - 20 [facility] Vital Signs Date Time Vital Sign Value Performing Clinician Geraldo noriega 08-12-2022 20:02-0400 Body temperature 98.8 [degF] Uvaldo Ibarra MD Work Phone: [facility] 08-12-2022 20:02-0400 Diastolic blood pressure 85 mm[Hg] Uvaldo Ibarra MD Work Phone: [facility] 08-12-2022 20:02-0400 Heart rate 94 /min Uvaldo Ibarra MD Work Phone: [facility] 08-12-2022 20:02-0400 Respiratory rate 20 /min Uvaldo Ibarra MD Work Phone: [facility] 08-12-2022 20:02-0400 SaO2% (BldA) [Mass fraction] 96 % Uvaldo Ibarra MD Work Phone: [facility] 08-12-2022 20:02-0400 Systolic blood pressure 129 mm[Hg] Uvaldo Ibarra MD Work Phone: [facility] 08-12-2022 18:35-0400 Body height 162.6 cm Uvaldo Ibarra MD Work Phone: [facility] 08-12-2022 18:35-0400 Body mass index (BMI) [Ratio] 23.34 kg/m2 Uvaldo Ibarra MD Work Phone: [facility] 08-12-2022 18:35-0400 Body weight 61.69 kg Uvaldo Ibarra MD Work Phone: [facility] Encounters Encounter Date Encounter Type Care Provider Facility Start: 12-19-2024 ambulatory [facility] Facility:[facility] Start: 03-07-2024 End: 03-07-2024 Emergency department patient visit [facility] Maria De Jesus [facility] Start: 08-12-2022 End: 08-12-2022 Emergency department patient visit Uvaldo Ibarra MD Work Phone: [facility] ED Comment on above: Irritant contact margie matitis, unspecified trigger (Primary Dx) Procedures Date Procedure Procedure Detail Performing Clinician Start: 08-12-2022 Comprehensive metabo lic panel Uvaldo Ibarra MD Work Phone: Plan of Treatment Date Care Activity Detail Author Start: 12-28-2021 Influenza vaccination Flu vaccine (# 1) [facility] Start: 2013 Screening for malign ant neoplasm of breast Breast cancer screen [facility] Start: 2013 Shingles vaccine (1 of 2) Shingles vaccine (1 of 2) [facility] Start: 02-20-2008 Screening for malign ant neoplasm of colon [facility] Start: 2003 Lipid panel Lipids [facility] Your[facility] Start: 1993 Screening for malign ant neoplasm of cervix [facility] Start: 02-20-1984 Screening for malign ant neoplasm of cervix Pap smear [facility] Start: 1982 DTaP/Tdap/Td vaccine (1 - Tdap) DTaP/Tdap/Td vaccine ( - Tdap) [facility] Start: 1981 Hepatitis C screening Hepatitis C sc reen [facility] Start: 1978 HIV screening HIV screen [facility] Start: 1975 Depression Screen Depression Screen [facility] [employer] [facility] Start: 1963 COVID-19 Vaccine (#1) COVID-19 Vacci ne (#1) [employer] Payers Date Payer Category Payer Self-pay 2024 Unknown [id number] 2014 Unknown [id number] 1963 Unknown [id number] Unknown [id number] Social History Date Type Detail Facility Start: 08-12-[address] [facility] Never smoked tobacco [facility] Phone: Start: 08-12-2022 Tobacco use and exposure Smokeless tobacco non-user [facility] Phone: Start: 08-12-2022 Alcohol intake Lifetime non-d soco (finding) [facility] Phone: Start: 1965 Sex Assigned At Not on file B ON [email or web address] Phone: Start: 08-02-2022 End: 08-12-2022 Exposure to SARS-CoV-2 (event) Not sure [facility] Phone: Evaluation note Note Date & Type Note Facility Evaluation note Diagnosis Irritant contact dermatitis, unspecified trigger- Primary documented in this encounter [facility] Phone: Hospital Discharge instructions Attachments Note Date & Type Note Facility Hospital Discharge instructions The following attachments cannot be sent through Care Everywhere.Dermatitis (Korean)documented in this encounter [facility] Phone: Summary Purpose Family History No Family History Records FoundNo Family History Records Found Advance Directives No Advanced Directives Records FoundNo Advanced Directives Records Found Additional Source Comments Reason for Visit (unrecogniz ed section and content) Reason Comments Cellulitis Patient states she w as seen in [facility] on Tuesday for cellulitis on the left [...] Care Teams (unrecognized sec tion and content) Rail Signal Mechanic Relationship Specialty Start Date End Date Gloria Robles, JACKIE [address] [phone] PCP - General Physician Furnace Stock Inspector 08/12/22 INFORMATION SOURCE (unrecogn ized section and content) DATE CREATED AUTHOR 03/09/2024 Aiyana cooley DATE CREATED AUTHOR AUTHOR'S ORGANIZ ATION 11/13/2024 [facility] FOR RECORDS PERTAINING TO PATIENTS WHO [...] BE BASED ON THE PRIMARY CLINICAL RECORDS. [employer] provides no warranty or guarantee of the accuracy or completeness of information in this document.
[2024-11-17 14:54] LABS: D-Dimer Quantitative (DVT/PE) 1.61 FEU/ug/m (0.27-0.49)
--- NOTE | 2024-11-17 15:02 | CT_ITS ---
PROCEDURE: CTA CHEST W/WO CONTRAST 11/17/2024 REASON FOR EXAM: CP, ELEVATED DIMER TECHNIQUE: CTA axial imaging of the chest with intravenous contrast. Coronal and Sagittal reconstruction series were provided. 3D, 3D post processing, 3D reconstructions, Maximum intensity projection (MIPs) Volume rendering and Shaded surface rendering was provided. PATIENT PREPARATION: Per protocol CONTRAST: Isovue 370 VOLUME: 100mL One or more dose reduction techniques were used (e.g., Automated exposure control, adjustment of the mA and/or kV according to patient size, use of iterative reconstruction technique). RADIATION DOSE SUMMARY: CTDlvol: 20 mGy DLP: 400 mGycm COMPARISON: Same day chest radiograph FINDINGS: Hardware: None. Lymph nodes: No axillary, mediastinal or hilar lymphadenopathy. Heart: The heart is normal in size without pericardial effusion. Mild leftward mediastinal shift secondary to severe pectus excavatum deformity. Minimal coronary artery and thoracic aortic calcifications. The great vessels are normal in caliber. Pulmonary Vessels: No central filling defect within the segmental or subsegmental pulmonary arteries. Lungs and Airways: The central airways are patent. Right middle lobe atelectasis secondary to severe pectus excavatum deformity. No suspicious pulmonary lesion. No pleural effusion or pneumothorax. Partially calcified left lower lobe granuloma. Upper Abdomen: Prior cholecystectomy. Calcific plaque of the abdominal aorta. Bones: Severe pectus excavatum deformity. Cervical and thoracic spondylosis. CT/CTA Chest W/WO Contrast IMPRESSION: 1. No acute pulmonary embolism. 2. Severe pectus excavatum deformity. Reading Location: [id number]
[2024-11-17 15:10] LABS: Anion Gap 11 (5-15); BUN 13 mg/dL (4-19); BUN/Creat Ratio 16.2 RATIO (10-20); Calcium,Total 9.1 mg/dL (7.6-11.0); Carbon Dioxide 26.4 mmol/L (21.0-32.0); Chloride 102 mmol/L (98-108); Creatinine, Serum 0.78 mg/dL (0.70-1.20); EST Glomerular Filtration Rate 86 (>60); Glucose 113 mg/dL (70-99); Sodium Level 139 mmol/L (133-145)
[2024-11-17 15:16] LABS: Troponin T High Sensitivity 7 ng/L (<=14)
[2024-11-17 17:05] LABS: Troponin T High Sens 2 HR 6 ng/L (<=14)
--- NOTE | 2024-11-17 17:30 | EKG12_ITS ---
Test Reason : CP Blood Pressure : */* mmHG Vent. Rate : 71 BPM Atrial Rate : 71 BPM P-R Int : 160 ms QRS Dur : 72 ms QT Int : 406 ms P-R-T Axes : 66 87 71 degrees QTcB Int : 441 ms Normal sinus rhythm Possible Left atrial enlargement Cannot rule out Septal infarct , age undetermined Abnormal ECG Confirmed by Alok Howard ([id number]), order editor YOLANDE PEREZ ([id number]) on 11/20/2024 11:48:30 AM Referred By: Lon Arrington Confirmed By: Alok Howard
--- NOTE | 2024-11-17 17:30 | EKG12_ITS ---
Test Reason : CP Blood Pressure : */* mmHG Vent. Rate : 71 BPM Atrial Rate : 71 BPM P-R Int : 160 ms QRS Dur : 72 ms QT Int : 406 ms P-R-T Axes : 66 87 71 degrees QTcB Int : 441 ms Normal sinus rhythm Possible Left atrial enlargement Cannot rule out Septal infarct , age undetermined Abnormal ECG Confirmed by Alok Howard ([id number]), story editor YOLANDE PEREZ ([id number]) on 11/20/2024 11:48:30 AM Referred By: Lon Arrington Confirmed By: Alok Howard
[2024-11-17] MEDS: Nitroglycerin Oint 1 INCH PACKET TD (17:37)
--- NOTE | 2024-11-17 18:04 | HP.PCM.HOS_ITS ---
HPI - General General Date of Admission: 11/17/24 Date of Service: 11/17/24 Chief Complaint: Chest pain HPI Narrative BARRIE PITTMAN, is a 59 F who presented to [facility] ED on 11/17/24 with chest pain. Chest pain started for patient a few months ago but has worsened over the past few weeks. She was intermittently having chest pain for a few months with no consistent pattern that would resolve on its own. However in the past few weeks, she notes that the chest pain has been worse with exertion and improves with rest. Reports dyspnea with exertion as well. Denies any radiation of pain. She did have an echo ordered by her PCP that is not scheduled until November. In the ED she was hemodynamically stable on room air. EKG showed sinus rhythm with no ST changes. D-dimer was elevated but CTA chest showed no PE and clear lung almanza; notably did show a severe pectus excavatum deformity. Troponins negative x 3. CBC and BMP otherwise benign. Given her ongoing pain that is worsened with exertion and better at rest, hospitalist was contacted for admission. I saw the patient at bedside in the ED, symptoms present. Patient was sitting back comfortably in bed, conversing normally, in no acute distress. Notes that she was told by either her PCP or a surgeon that she may need a surgical chest plate placed at some point for her severe pectus excavatum deformity. Medical history is otherwise notable for hypertension, hyperlipidemia and depression/anxiety. She denies any recent fevers or chills. No other acute concerns currently. Will be admitted for further management. [facility] Medical History no medical history Home Medications ?Medication ?Instructions ?Recorded ?Last Taken ?Type metoprolol succinate 50 mg 25 mg PO DAILY 11/17/24 History tablet,extended release 24 hr quetiapine 100 mg tablet 100 mg PO QHS 11/17/2411/16 History rosuvastatin 10 mg tablet 10 mg PO DAILY 11/17/2410/29 History venlafaxine 75 mg capsule,extended 75 mg PO QPM 11/16/24 History release 24 hr Allergy/AdvReac Type Severity Reaction Status Date / Time No Known Allergies Allergy Verified 11/17/24 14:04 Family History no significant family his Surgical History no surgical history Social History Smoking Status: Never smoker ROS Constitutional Constitutional: Denies chills, fatigue, fever(s) or weakness Eyes Eyes: Denies change in vision Cardiovascular Cardiovascular: Reports chest pain and dyspnea on exertion; Denies edema, lightheadedness, orthopnea, palpitations or rapid heart rate Respiratory/Chest Respiratory/Chest: Denies cough, productive cough, shortness of breath at rest or wheezing Gastrointestinal Gastrointestinal: Denies abdominal pain Genitourinary Genitourinary: Denies dysuria Musculoskeletal Musculoskeletal: Denies arthralgias or myalgias Neurologic Neurologic: Denies dizziness, focal weakness or headache(s) Vital Signs Vital Signs Vital Signs: 11/17/24 14:04 11/17/24 14:31 11/17/24 14:31 Temperature 98.1 F Temperature Source Oral Pulse Rate 75 68 Respiratory Rate 16 13 Blood Pressure 140/80 H 141/83 H Blood Pressure Mean 100 102 Pulse Ox 96 93 Oxygen Delivery Method Room Air Room Air Room Air 11/17/24 14:35 11/17/24 14:50 11/17/24 15:15 Temperature Temperature Source Pulse Rate 65 68 Respiratory Rate Blood Pressure 141/83 H 114/83 H 100/60 Blood Pressure Mean 72 Pulse Ox Oxygen Delivery Method 11/17/24 15:17 11/17/24 15:28 11/17/24 15:28 Temperature Temperature Source Pulse Rate 85 58 L 62 Respiratory Rate 31 H 15 Blood Pressure 112/68 112/68 Blood Pressure Mean 83 Pulse Ox 94 94 Oxygen Delivery Method Room Air 11/17/24 15:30 11/17/24 15:45 11/17/24 16:00 Temperature Temperature Source Pulse Rate 54 L 60 Respiratory Rate 15 13 Blood Pressure 101/67 102/67 Blood Pressure Mean 79 78 Pulse Ox 98 95 Oxygen Delivery Method Room Air 11/17/24 16:15 11/17/24 16:30 11/17/24 16:45 Temperature Temperature Source Pulse Rate 59 L 57 L Respiratory Rate 15 14 Blood Pressure 104/66 107/64 108/69 Blood Pressure Mean 79 79 82 Pulse Ox 96 96 Oxygen Delivery Method Room Air 11/17/24 17:00 11/17/24 17:15 11/17/24 17:30 Temperature Temperature Source Pulse Rate 57 L 60 Respiratory Rate 10 L 15 Blood Pressure 118/72 117/70 126/79 H Blood Pressure Mean 87 83 93 Pulse Ox 96 100 Oxygen Delivery Method Room Air 11/17/24 17:37 11/17/24 17:45 11/17/24 18:00 Temperature Temperature Source Pulse Rate 58 L 60 Respiratory Rate 16 Blood Pressure 126/79 H 124/69 H 124/76 H Blood Pressure Mean 86 91 Pulse Ox 97 98 Oxygen Delivery Method Room Air Weight Weight: 63.957 kg Body Mass Index (BMI) 24.2 Physical Exam Const alert, oriented x3, no apparent distress, average body habitus, healthy appearing and well nourished Constitutional Narrative: Upper middle-aged female, mildly fatigued. But otherwise sitting back comfortably in bed, conversing normally, in no acute distress. General Appearance: cooperative, comfortable, well kempt and well developed HEENT normocephalic, head/scalp atraumatic, hearing grossly normal bilaterally, nasal mucous membranes and turbinates normal and moist oral mucous membranes Eyes PERRL, EOMs intact bilaterally and conjunctivae normal Neck full ROM Chest Chest Narrative: Severe pectus excavatum deformity noted. Patient does report mild to moderate tenderness with palpation in the mid chest area as well. Resp normal respiratory effort, normal air movement, no use of accessory muscles and clear to auscultation bilaterally Cardio regular rate, regular rhythm, no murmurs and peripheral pulses 2+ throughout GI normal to inspection, nondistended, normoactive bowel sounds, soft to palpation, non-tender and non-distended Back/Spine normal ROM Extremity normal to inspection, full ROM and no pedal edema Skin no rashes or lesions noted Psych mental status grossly normal Results Lab / Micro Data 11/17/24 14:20 11/17/24 14:20 Labs: Laboratory Results - last 24 hr 11/17/24 14:20: WBC 3.7 L, RBC 4.52, Hgb 13.3, Hct 40.9, MCV 90.5, MCH 29.4, MCHC 32.5, RDW Std Deviation 39.6, RDW Coeff of Lisa 12.0, Plt Count 138 L, MPV 10.6, Immature Gran % (Auto) 0.800, Neut % (Auto) 54.3, Lymph % (Auto) 28.8, M kristie % (Auto) 13.7 H, Eos % (Auto) 1.9, Baso % (Auto) 0.5, Absolute Neuts (auto) 2.0, Absolute Lymphs (auto) 1.07, Nucleated RBC % 0, PT 12.8, INR 0.9, APTT 24.6, D-Dimer Quant (PE/DVT) 1.61 H*, Sodium 139, Potassium 4.0, Chloride 102, Carbon Dioxide 26.4, Anion Gap 11, BUN 13, Creatinine 0.78, Estim Creat Clear Calc 65.40, Est GFR (MDRD) Non-Af 86, BUN/Creatinine Ratio 16.2, Glucose 113 H, Calcium 9.1, Troponin T High Sens 7 11/17/24 16:20: Troponin T Hi Sens 2 Hr 6 Imaging Radiology Impression Chest X-Ray 11/17/24 14:23 IMPRESSION: Bibasilar opacities likely imaging artifact from pectus excavatum. No definite focal consolidations. Moderate cardiomegaly. Reading Location: [facility] Chest CTA 11/17/24 15:02 IMPRESSION: 1. No acute pulmonary embolism. 2. Severe pectus excavatum deformity. Reading Location: [id number] Assessment & Plan Assessment/Plan (1) Chest pain: PLAN: Plan Patient is a 59-year-old female who presented to [facility] ED on 11/17/2024 with chest pain. 1. Chest pain, ACS rule out ? Admit under observation status to PCU. Unclear etiology for chest pain at this time. Suspect severe pectus excavatum deformity may be contributing. Hemodynamically stable in the ED. EKG with normal sinus rhythm, no ST changes. Troponins negative x 3. CTA chest with no PE, clear lung almanza. Echocardiogram and nuclear stress test ordered for further evaluation. 2. Severe pectus excavatum deformity ? Noted on CTA chest. Has been present since . Has discussed with either PCP or surgeon about possible need for surgical plate placement for this. No inpatient needs, continue outpatient follow-up. 3. Hypertension ? Will hold home Toprol for stress test. Will be okay to resume after that. 4. Hyperlipidemia ? Continue home statin. 5. Anxiety/depression ? Continue home venlafaxine and quetiapine. DVT prophylaxis: Lovenox CODE STATUS: Full code, verified Expected disposition: Home, 1 to 2 days Total clinical time spent by myself addressing the patient's medical issues, reviewing all the data, and collaborating with patient's care team: 55 minutes. Charges/Coding Visit Charges Inpatient E&M: 58740 Init Hosp L2
--- NOTE | 2024-11-17 18:10 | ECHOD_ITS ---
Reason For Study Reason For Study: Chest Pain Procedure This was a 2D Doppler, Color Flow transthoracic echocardiogram. Technically difficult study due to patient body habitus. Exam performed in department. Left Ventricle Normal LV size. Left ventricular systolic function is normal. The left ventricular ejection fraction is 65 %. Stage 1 diastolic dysfunction. No regional wall motion abnormalities noted. Right Ventricle Normal RV size. Normal systolic function. Atria Normal left atrium. Normal right atrium. Mitral Valve Bileaflet diffuse mitral valve thickening. Tricuspid Valve Normal tricuspid valve. Mild (1+) tricuspid valve insufficiency. Pulmonary artery systolic pressure is 28 mmHg. Aortic Valve Trisinus/trileaflet aortic valve. Pulmonic Valve Normal pulmonic valve. Great Vessels Normal aortic root. The pulmonary artery is normal size. Inferior vena cava collapse with respiration. Pericardium/Pleural No pericardial effusion. MMode/2D Measurements & Calculations LVIDd: 4.0 cm IVSd: 0.86 cm Ao root diam: 2.9 cm LVIDs: 3.2 cm LVPWd: 1.0 cm RVDd: 2.1 cm FS: 19.8 % LAV(MOD-bp): 25.0 ml LVAd ap4: 16.7 cm2 SV(MOD-sp4): 16.6 ml LAV(MOD-bp) Indexed: 14.9 ml/m2 LVLd ap4: 6.1 cm SI(MOD-sp4): 9.9 ml/m2 LAV(MOD-sp2): 27.5 ml EDV(MOD-sp4): 37.5 ml LAV(MOD-sp4): 15.2 ml EDV(sp4-el): 39.0 ml LVAs ap4: 11.9 cm2 LVLs ap4: 5.6 cm ESV(MOD-sp4): 20.9 ml ESV(sp4-el): 21.1 ml EF(MOD-sp4): 44.3 % EF(sp4-el): 45.9 % SV(sp4-el): 17.9 ml LA A4 area: 9.7 cm2 LA dimension(2D): 3.4 cm RA A4 area: 7.3 cm2 TAPSE: 1.7 cm Time Measurements MV dec time: 0.24 sec Doppler Measurements & Calculations MV E max eugenio: 47.7 cm/sec Lat Peak E' Eugenio: 8.4 cm/sec Med Peak E' Eugenio: 7.6 cm/sec MV A max eugenio: 67.3 cm/sec E/E' lat: 5.7 E/E' med: 6.2 MV E/A: 0.71 MV V2 max: 86.4 cm/sec MV P1/2t max eugenio: 60.7 cm/sec Ao V2 max: 114.6 cm/sec MV max P.0 mmHg MV P1/2t: 74.9 msec Ao max P.3 mmHg MV V2 mean: 47.3 cm/sec MV mean P.0 mmHg MV dec slope: 237.3 cm/sec2 MV V2 VTI: 14.1 cm MVA(P1/2t): 2.9 cm2 LV V1 max: 92.2 cm/sec MR max eugenio: 642.5 cm/sec PA V2 max: 71.0 cm/sec LV V1 max P.4 mmHg MR max P.1 mmHg LV V1 mean P.7 mmHg LV V1 mean: 58.4 cm/sec LV V1 VTI: 16.1 cm TR max eugenio: 243.1 cm/sec TR max P.6 mmHg ECHO/Echo Complete Interpretation Summary Normal LV size. Left ventricular systolic function is normal. The left ventricular ejection fraction is 65 %. Stage 1 diastolic dysfunction. Bileaflet diffuse mitral valve thickening. Ordering Physician: Lon Arrington Referring Physician: Lon Arrington Performed By: Raymond Price RCS
--- OUTSIDE RECORDS SUMMARY | 2024-11-17 18:21 | XMS RPT_ITS | CCD ---
Author Organization [facility] Care Team Providers Care Tobacco Grader Name Role Phone Gloria Marinelli Primary Care Provider [phone] GLORIA ROBLES Primary Care Unavailable SNEHA MORGAN Attending Unavailable Gloria Robles Referring Unavailable Gloria Robles Attending Unavailable Gloria Robles Primary Care Unavailable Allergies Allergy Classification Reported Allergen(s) Allergy Type Date of Onset Reaction(s) Facility (1 source) Codeine Drug Allergy 08-12-2022 [facility] Medications Current Medications Medication Drug Class(es) [...] Test Name Value Interpretation Reference Range Facil [facility] Basic Metabolic Profon 03-07 Anion gap [Moles/Vol] 10 mmol/L Normal 9-[address] [facility] Comment on above: Performed By: #### B HOLLIE MOODY, CDP #### [facility] [address] [place], [place] [phone] Secretary To Board Of Commissioners: Anselmo Wilkinson MD BUN/CRE Ratio 21 High 9-20 [facility] Comment on above: Performed By: #### B HOLLIE MOODY, CDP #### [facility] [address] [place], [place] [phone] Secretary To Board Of Commissioners: Anselmo Wilkinson MD Calcium [Mass/Vol] 8.8 mg/dL Normal 8.6-10.4 [facility] Comment on above: Performed By: #### B HOLLIE MOODY, CDP #### [facility] [address] [place], [place] [phone] Secretary To Board Of Commissioners: Anselmo Wilkinson MD Chloride [Moles/Vol] 99 mmol/L Normal 98-107 [facility] Comment on above: Performed By: #### B HOLLIE MOODY, CDP #### [facility] [address] [place], [place] [phone] Secretary To Board Of Commissioners: Anselmo Wilkinson MD CO2 [Moles/Vol] 26 mmol/L Normal 20-31 [facility] Comment on above: Performed By: #### B HOLLIE MOODY, CDP #### [facility] [address] [place], [place] [phone] Secretary To Board Of Commissioners: Anselmo Wilkinson MD Creatinine [Mass/Vol] 0.7 mg/dL Normal 0.5-0.[address] [facility] Comment on above: Performed By: #### B HOLLIE MOODY CDP #### [facility] [address], [place] [phone] Secretary To Board Of Commissioners: Anselmo Wilkinson MD GFR/1.73 sq M.predicted among non-blacks MDRD (S/P/Bld) [Vol rate/Area] mL/min/{1.73_m2} Normal >60 [facility] Comment on above: Result Comment: These [...] By: #### B HOLLIE MOODY CDP #### [facility] [address] [place] [address] Secretary To Board Of Commissioners: Anselmo Wilkinson MD Glucose [Mass/Vol] 91 mg/dL Normal 70-99 [facility] Comment on above: Performed By: #### B HOLLIE MOODY CDP #### [facility] [address] [place] [address] Secretary To Board Of Commissioners: Anselmo Wilkinson MD Potassium [Moles/Vol] 4.4 mmol/L Normal 3.7-5.[address] [facility] Comment on above: Performed By: #### B HOLLIE MOODY CDP #### [facility] [address] [place] [address] Secretary To Board Of Commissioners: Anselmo Wilkinson MD Sodium [Moles/Vol] 135 mmol/L Normal 135-144 [facility] Comment on above: Performed By: #### B MP, NAYLA BROWNE #### [facility] [address] [place] [address] Secretary To Board Of Commissioners: Anselmo Wilkinson MD Urea nitrogen [Mass/Vol] 15 mg/dL Normal 8-23 [facility] Comment on above: Performed By: #### B HOLLIE MOODY CDP #### [facility] [address] [place] [phone] Secretary To Board Of Commissioners: Anselmo Wilkinson MD CBC with Diffon 03-07-2024 Abs. Basophil 0.01 k/uL Normal 0.00-0.20 [facility] Comment on above: Performed By: #### B HOLLIE MOODY CDP #### [facility] [address] [place] [address] Secretary To Board Of Commissioners: Anselmo Wilkinson MD Abs.Imm.Granulocyte 0.03 k/uL Normal 0.00-0.30 [facility] Comment on above: Performed By: #### B HOLLIE MOODY CDP #### [facility] [address] [place] [phone] Secretary To Board Of Commissioners: Anselmo Wilkinson MD Abs.Neutrophil (Seg) 3.98 k/uL Normal 2.5-7.0 [facility] Comment on above: Performed By: #### B HOLLIE MOODY CDP #### [facility] [address] [place] [address] Secretary To Board Of Commissioners: Anselmo Wilkinson MD Basophils/100 WBC (Bld) 0 % Normal 0-2 [facility] Comment on above: Performed By: #### B HOLLIE MOODY CDP #### [facility] [address] [place] [phone] Secretary To Board Of Commissioners: Anselmo Wilkinson MD Eosinophils (Bld) [#/Vol] 0.16 10*3/uL Normal 0.00-0.40 [facility] Comment on above: Performed By: #### B HOLLIE MOODY, CDP #### [facility] [address] [place], [place] [phone] Secretary To Board Of Commissioners: Anselmo Wilkinson MD Eosinophils/100 WBC (Bld) 3 % Normal 0-5 [facility] Comment on above: Performed By: #### B HOLLIE MOODY, NAYLA #### [facility] [address] [place] [address] Secretary To Board Of Commissioners: Anselmo Wilkinson MD Erythrocyte distribution width (RBC) [Ratio] 11.8 % Low 12.1-15.2 [facility] Comment on above: Performed By: #### B HOLLIE MOODY, CDP #### [facility] [address] [place], [place] [phone] Secretary To Board Of Commissioners: Anselmo Wilkinson MD Hematocrit (Bld) [Volume fraction] 45.4 % Normal 36.0-46.0 [facility] Comment on above: Performed By: #### B HOLLIE MOODY, CDP #### [facility] [address] [place], [place] [phone] Secretary To Board Of Commissioners: Anselmo Wilkinson MD Hemoglobin (Bld) [Mass/Vol] 15.4 g/dL Normal 12.0-16.0 [facility] Comment on above: Performed By: #### B HOLLIE MOODY CDP #### [facility] [address] [place], [place] [phone] Secretary To Board Of Commissioners: Anselmo Wilkinson MD Immature granulocytes/100 WBC (Bld) 1 % Normal 0-5 [facility] Comment on above: Performed By: #### B HOLLIE MOODY, CDP #### [facility] [address] [place], [place] [id number] Secretary To Board Of Commissioners: Anselmo Wilkinson MD Lymphocytes (Bld) [#/Vol] 0.90 10*3/uL Low 1.00-4.80 [facility] Comment on above: Performed By: #### B HOLLIE MOODY, CDP #### [facility] [address] [place] [address] Secretary To Board Of Commissioners: Anselmo Wilkinson MD Lymphocytes/100 WBC (Bld) 16 % Normal 15-40 [facility] Comment on above: Performed By: #### B HOLLIE MOODY, CDP #### [facility] [address] [place] [address] Secretary To Board Of Commissioners: Anselmo Wilkinson MD MCH (RBC) [Entitic mass] 29.8 pg Normal 26.0-34.0 [facility] Comment on above: Performed By: #### B HOLLIE MOODY, CDP #### [facility] [address] [place] [address] Secretary To Board Of Commissioners: Anselmo Wilkinson MD MCHC (RBC) [Mass/Vol] 33.9 g/dL Normal 31.0-37.[address] [facility] Comment on above: Performed By: #### B HOLLIE MOODY, CDP #### [facility] [address] [place] [address] Secretary To Board Of Commissioners: Anselmo Wilkinson MD MCV (RBC) [Entitic vol] 88.0 fL Normal 80.0-100.0 [facility] Comment on above: Performed By: #### B HOLLIE MOODY, CDP #### [facility] [address] [place] [address] Secretary To Board Of Commissioners: Anselmo Wilkinson MD Monocytes (Bld) [#/Vol] 0.51 10*3/uL Normal 0.00-1.00 [facility] Comment on above: Performed By: #### B HOLLIE MOODY, CDP #### [facility] [address] [place] [address] Secretary To Board Of Commissioners: Anselmo Wilkinson MD Monocytes/100 WBC (Bld) 9 % High 4-8 [facility] Comment on above: Performed By: #### B HOLLIE MOODY, CDP #### [facility] [address] [place] [address] Secretary To Board Of Commissioners: Anselmo Wilkinson MD Neutrophil (Seg) 71 % Normal 47-75 [facility] Comment on above: Performed By: #### B HOLLIE MOODY, CDP #### [facility] [address] [place], [place] [phone] Secretary To Board Of Commissioners: Anselmo Wilkinson MD Platelet mean volume (Bld) [Entitic vol] 10.0 fL Normal 6.0-12.0 [facility] Comment on above: Performed By: #### B HOLLIE MOODY, CDP #### [facility] [address] [place] [address] Secretary To Board Of Commissioners: Anselmo Wilkinson MD Platelets (Bld) [#/Vol] 149 10*3/uL Normal 140-450 [facility] Comment on above: Performed By: #### B HOLLIE MOODY, CDP #### [facility] [address] [place] [address] Secretary To Board Of Commissioners: Anselmo Wilkinson MD RBC (Bld) [#/Vol] 5.16 10*6/uL Normal 4.00-5.20 [facility] Comment on above: Performed By: #### B HOLLIE MOODY, CDP #### [facility] [address] [place], [place] [phone] Secretary To Board Of Commissioners: Anselmo Wilkinson MD WBC (Bld) [#/Vol] 5.6 10*3/uL Normal 3.5-11.0 [facility] Comment on above: Performed By: #### B HOLLIE MOODY, CDP #### [facility] [address] [place] [phone] Secretary To Board Of Commissioners: Anselmo Wilkinson MD CT HEAD WO CONTRASTon [...] Maribel Esteban MD 03/07/24 Final result Normal [facility] Troponinon 03-07-2024 Troponin, High Sens 8 ng/L Normal 0-14 [facility] Comment on above: Result Comment: High Sensitivity Troponin values cannot be compared with other Troponin methodologies. Performed By: #### B MP, TROPI, CDP #### [facility] [address] [place] [address] Secretary To Board Of Commissioners: Anselmo Wilkinson MD Urinalysis, Routineon 2023 Bilirubin, SemiQt,Ur Negative Normal NEG [facility] Comment on above: Performed By: #### U A #### [facility] [address] [place], [place] [phone] Secretary To Board Of Commissioners: Anselmo Wilkinson MD Blood, Urine Negative Normal NEG [facility] Comment on above: Performed By: #### U A #### [facility] [address] [place] [address] Secretary To Board Of Commissioners: Anselmo Wilkinson MD Clarity (U) Clear Normal CLEAR [facility] Comment on above: Performed By: #### U A #### [facility] [address] [place], [place] [phone] Secretary To Board Of Commissioners: Anselmo Wilkinson MD Color (U) Yellow Normal YEL [facility] Comment on above: Performed By: #### U A #### [facility] [address] [place], [place] [phone] Secretary To Board Of Commissioners: Anselmo Wilkinson MD Comment Normal [facility] Comment on above: Performed By: #### U A #### [facility] [address] [place], [place] [phone] Secretary To Board Of Commissioners: Anselmo Wilkinson MD Glucose Ql (U) Negative Normal NEG [facility] Comment on above: Performed By: #### U A #### [facility] [address] [place], [place] [phone] Secretary To Board Of Commissioners: Anselmo Wilkinson MD Ketones Ql (U) Negative Normal NEG [facility] Comment on above: Performed By: #### U A #### [facility] [address] [place] [address] Secretary To Board Of Commissioners: Anselmo Wilkinson MD Leukocyte esterase Test strip Ql (U) Negative Normal NEG [facility] Comment on above: Performed By: #### U A #### [facility] [address] [place] [address] Secretary To Board Of Commissioners: Anselmo Wilkinson MD Nitrite,Ur Negative Normal NEG [facility] Comment on above: Performed By: #### U A #### [facility] [address] [place] [address] Secretary To Board Of Commissioners: Anselmo Wilkinson MD PH,Ur 5.0 Normal 5.0-8.0 [facility] Comment on above: Performed By: #### U A #### [facility] [address] [place] [address] Secretary To Board Of Commissioners: Anselmo Wilkinson MD Protein Ql (U) Negative Normal NEG [facility] Comment on above: Performed By: #### U A #### [facility] [address] [place] [address] Secretary To Board Of Commissioners: Anselmo Wilkinson MD Spec. [place],Ur 1.010 Normal 1.005-1.030 [facility] Comment on above: Performed By: #### U A #### [facility] [address] [place] [address] Secretary To Board Of Commissioners: Anselmo Wilkinson MD Urobilinogen,Ur Normal Normal 0.0-1.0 [facility] Comment on above: Performed By: #### U A #### [facility] [address] [place] [address] Secretary To Board Of Commissioners: Anselmo Wilkinson MD CBC with Auto Differentialon 08-12-2022 Absolute Eos # 0.10 [facility] Absolute Lymph # 1[facility]40 [facility] Absolute Sac # 0.60 [facility] Basophils (Bld) [#/Vol] 0.00 10*3/uL [facility] Basophils/100 WBC (Bld) 0 % 0 - 2 % [facility] Differential Type YES [facility] Eosinophils/100 WBC (Bld) 1 % 0 - 5 % [facility] Hematocrit (Bld) [Volume fraction] 39.0 % 36 - 46 % [facility] Hemoglobin (Bld) [Mass/Vol] 12.8 g/dL 12.0 - 16.0 g/dL [facility] Interpretation and review of laboratory results Abnormal [facility] Lymphocytes/100 WBC (Bld) 14 % Low 15 - 40 % [facility] MCH (RBC) [Entitic mass] 29.9 pg 26 - 34 pg [facility] MCHC (RBC) [Mass/Vol] 32.9 g/dL 31 - 37 g/dL [facility] MCV (RBC) [Entitic vol] 90.8 fL 80 - 100 fL [facility] Monocytes/100 WBC (Bld) 6 % 4 - 8 % [facility] Platelet distribution width (Bld) [Ratio] 13.3 % 12.1 - 15.2 % [facility] Platelets (Bld) [#/Vol] 159 10*3/uL [facility] RBC (Bld) [#/Vol] 4.30 10*6/uL 4.0 - 5.2 m/uL [facility] Segmented neutrophils/100 WBC (Bld) 79 % High 47 - 75 % [facility] Segs Absolute 7.70 High [facility] WBC (Bld) [#/Vol] 9.8 10*3/uL [facility] SE COURS [facility] Comprehensive Metabolic Pane judd 08-12-2022 Albumin [Mass/Vol] 3.5 g/dL 3.5 - 5.2 g/dL [facility] ALP [Catalytic activity/Vol] 103 U/L 35 - 104 U/L [facility] ALT [Catalytic activity/Vol] 60 U/L High 5 - 33 U/L [facility] Anion gap [Moles/Vol] 13 mmol/L 9 - 17 mmol/L [facility] AST [Catalytic activity/Vol] 52 U/L High NINF - 32 U/L [facility] Bilirubin [Mass/Vol] 0.4 mg/dL 0.3 - 1.2 mg/dL [facility] Calcium [Mass/Vol] 8.7 mg/dL 8.6 - 10. 4 mg/dL [facility] Chloride [Moles/Vol] 95 mmol/L Low 98 - 107 mmol/L [facility] CO2 [Moles/Vol] 28 mmol/L 20 - 31 mmol/L [facility] Creatinine [Mass/Vol] 0.67 mg/dL 0.50 - 0.90 mg/dL [facility] GFR/1.73 sq M.predicted MDRD (S/P/Bld) [Vol rate/Area] - PINF [facility] Comment on above: These results are [...] 155 mg/dL High 70 - 99 mg/dL [facility] Interpretation and review of laboratory results Abnormal [facility] Potassium [Moles/Vol] 3.5 mmol/L Low 3.7 - 5.3 mmol/L [facility] Protein [Mass/Vol] 6.5 g/dL 6.4 - 8.3 g/dL [facility] Sodium [Moles/Vol] 136 mmol/L 135 - 144 mmol/L [facility] Urea nitrogen [Mass/Vol] 10 mg/dL 6 - 20 mg/dL [facility] Urea nitrogen/Creatinine (Bld) [Mass ratio] 15 9 - 20 [facility] Vital Signs Date Time Vital Sign Value Performing Clinician Geraldo noirega 08-12-2022 20:02-0400 Body temperature 98.8 [degF] Uvaldo Ibarra MD Work Phone: [facility] 08-12-2022 20:02-0400 Diastolic blood pressure 85 mm[Hg] Uvaldo Ibarra MD Work Phone: [facility] 08-12-2022 20:02-0400 Heart rate 94 /min Uvaldo Ibarra MD Work Phone: [facility] 08-12-2022 20:02-0400 Respiratory rate 20 /min Uvaldo Ibarra MD Work Phone: [facility] 08-12-2022 20:02-0400 SaO2% (BldA) [Mass fraction] 96 % Uvaldo Ibarra MD Work Phone: [facility] 08-12-2022 20:02-0400 Systolic blood pressure 129 mm[Hg] Uvaldo Ibarra MD Work Phone: [facility] 08-12-2022 18:35-0400 Body height 162.6 cm Uvaldo Ibarra MD Work Phone: [facility] 08-12-2022 18:35-0400 Body mass index (BMI) [Ratio] 23.34 kg/m2 Uvaldo Ibarra MD Work Phone[facility] 08-12-2022 18:35-0400 Body weight 61.69 kg Uvaldo Ibarra MD Work Phone: [facility] [employer] Encounters Encounter Date Encounter Type Care Provider Facility Start: 12-19-[address] [facility] Facility:[facility] Start: 03-07-2024 End: 03-07-2024 Emergency department patient visit [facility] Start: 08-12-2022 End: 08-12-2022 Emergency department patient visit Uvaldo Ibarra MD Work Phone: [facility] Comment on above: Irritant contact margie matitis, unspecified trigger (Primary Dx) Procedures Date Procedure Procedure Detail Performing Clinician Start: 08-12-2022 Comprehensive metabo lic panel Uvaldo Ibarra MD Work Phone: Plan of Treatment Date Care Activity Detail Author Start: 12-28-2021 Influenza vaccination Flu vaccine (# 1) [facility] [employer] Start: 2013 Screening for malign ant neoplasm of breast Breast cancer screen [facility] [employer] Start: 2013 Shingles vaccine (1 of 2) Shingles vaccine (1 of 2) [facility] Start: 02-20-2008 Screening for malign ant neoplasm of colon [facility] [employer] [employer] Start: 2003 Lipid panel Lipids [facility] Start: 1993 Screening for malign ant neoplasm of cervix [facility] Start: 02-20-1984 Screening for malign ant neoplasm of cervix Pap smear [facility] [employer] Start: 1982 DTaP/Tdap/Td vaccine (1 - Tdap) DTaP/Tdap/Td vaccine ( - Tdap) [facility] Start: 1981 Hepatitis C screening Hepatitis C sc reen [facility] Start: 1978 HIV screening HIV screen [facility] Start: 1975 Depression Screen Depression Screen [facility] [employer] Start: 1965 COVID-19 Vaccine (#1) COVID-19 Vacci ne (#1) [employer] Payers Date Payer Category Payer Self-pay 2024 Unknown [id number] 2014 Unknown [id number] 1965 Unknown [id number] Unknown [id number] Social History Date Type Detail Facility Start: 08-12-2022 Tobacco smoking stat [facility] Never smoked tobacco [facility] Phone: Start: 08-12-2022 Tobacco use and exposure Smokeless tobacco non-user [facility] Phone: Start: 08-12-2022 Alcohol intake Lifetime non-d soco (finding) [facility] Phone: Start: 1965 Sex Assigned At Not on file [facility] Phone: Start: 08-02-2022 End: 08-12-2022 Exposure to SARS-CoV-2 (event) Not sure [facility] Phone: Evaluation note Note Date & Type Note Facility Evaluation note Diagnosis Irritant contact dermatitis, unspecified trigger- Primary documented in this encounter [facility] Phone: Hospital Discharge instructions Attachments Note Date & Type Note Facility Hospital Discharge instructions The following attachments cannot be sent through Care Everywhere.Dermatitis ([place])documented in this encounter [facility] Phone: Summary Purpose Family History No Family History Records FoundNo Family History Records Found Advance Directives No Advanced Directives Records FoundNo Advanced Directives Records Found Additional Source Comments Reason for Visit (unrecogniz ed section and content) Reason Comments Cellulitis Patient states she w as seen in [facility] on Tuesday for cellulitis on [...] Care Teams (unrecognized sec tion and content) Tobacco Grader Relationship Specialty Start Date End Date Gloria Robles, JACKIE [phone] [phone] PCP - General Physician [employer]el[employer] Department Supervisor 08/12/22 INFORMATION SOURCE (unrecogn ized section and content) DATE CREATED AUTHOR 03/09/2024 Aiyana cooley DATE CREATED AUTHOR AUTHOR'S ORGANIZ ATION 11/13/2024 [facility] FOR RECORDS PERTAINING TO PATIENTS WHO ARE [...] BE BASED ON THE PRIMARY CLINICAL RECORDS. [email or web address] provides no warranty or guarantee of the accuracy or completeness of information in this document.
--- OUTSIDE RECORDS SUMMARY | 2024-11-17 18:21 | XMS RPT_ITS | CCD ---
Author Organization [facility] Care Team Providers Care Performance Analyst Name Role Phone Gloria Marinelli Primary Care Provider GLORIA RBOLES Primary Care Unavailable SNEHA MORGAN Attending Unavailable Gloria Robles Referring Unavailable Gloria Robles Attending Unavailable Gloria Robles Primary Care Unavailable Allergies Allergy Classification Reported Allergen(s) Allergy Type Date of Onset Reaction(s) Facility (1 source) Codeine Drug Allergy 08-12-2022 [facility] Medications Current Medications Medication Drug Class(es) Dates [...] Test Name Value Interpretation Reference Range Facil [facility] Basic Metabolic Profon 03-07 Anion gap [Moles/Vol] 10 mmol/L Normal 9-17 [facility] Comment on above: Performed By: #### B HOLLIE MOODY, CDP #### [facility] [address] [place], [place] [id number] Digester Operator: Anselmo Wilkinson MD BUN/CRE Ratio 21 High 9-20 [facility] Comment on above: Performed By: #### B HOLLIE MOODY, CDP #### [facility] [address] [place], [place] [id number] Digester Operator: Anselmo Wilkinson MD Calcium [Mass/Vol] 8.8 mg/dL Normal 8.6-10.4 [facility] Comment on above: Performed By: #### B HOLLIE MOODY, CDP #### [facility] [address] [place], [place] [id number] Digester Operator: Anselmo Wilkinson MD Chloride [Moles/Vol] 99 mmol/L Normal 98-107 [facility] Comment on above: Performed By: #### B HOLLIE MOODY, CDP #### [facility] [address] [place], [place] [id number] Digester Operator: Anselmo Wilkinson MD CO2 [Moles/Vol] 26 mmol/L Normal 20-31 [facility] Comment on above: Performed By: #### B HOLLIE MOODY, CDP #### [facility] [address] [place], [place] [id number] Digester Operator: Anselmo Wilkinson MD Creatinine [Mass/Vol] 0.7 mg/dL Normal 0.5-0.9 [facility] Comment on above: Performed By: #### B HOLLIE MOODY CDP #### [facility] [address] [place], [place] [id number] Digester Operator: Anselmo Wilkinson MD GFR/1.73 sq M.predicted among non-blacks MDRD (S/P/Bld) [Vol rate/Area] mL/min/{1.73_m2} Normal >60 [facility] Comment on above: Result Comment: These results [...] By: #### B HOLLIE MOODY CDP #### [facility] [address] [place] [address] Digester Operator: Anselmo Wilkinson MD Glucose [Mass/Vol] 91 mg/dL Normal 70-99 [facility] Comment on above: Performed By: #### B HOLLIE MOODY CDP #### [facility] [address] [place] [address] Digester Operator: Anselmo Wilkinson MD Potassium [Moles/Vol] 4.4 mmol/L Normal 3.7-5.3 [facility] Comment on above: Performed By: #### B HOLLIE MOODY CDP #### [facility] [address] [place] [address] Digester Operator: Anselmo Wilkinson MD Sodium [Moles/Vol] 135 mmol/L Normal 135-144 [facility] Comment on above: Performed By: #### B MP, NAYLA BROWNE #### [facility] [address] [place] [address] Digester Operator: Anselmo Wilkinson MD Urea nitrogen [Mass/Vol] 15 mg/dL Normal 8-23 [facility] Comment on above: Performed By: #### B HOLLIE MOODY CDP #### [facility] [address] [place] [phone] Digester Operator: Anselmo Wilkinson MD CBC with Diffon 03-07-2024 Abs. Basophil 0.01 k/uL Normal 0.00-0.20 [facility] Comment on above: Performed By: #### B HOLLIE MOODY CDP #### [facility] [address] [place] [address] Digester Operator: Anselmo Wilkinson MD Abs.Imm.Granulocyte 0.03 k/uL Normal 0.00-0.30 [facility] Comment on above: Performed By: #### B HOLLIE MOODY CDP #### [facility] [address] [place] [phone] Digester Operator: Anselmo Wilkinson MD Abs.Neutrophil (Seg) 3.98 k/uL Normal 2.5-7.0 [facility] Comment on above: Performed By: #### B HOLLIE MOODY CDP #### [facility] [address] [place] [address] Digester Operator: Anselmo Wilkinson MD Basophils/100 WBC (Bld) 0 % Normal 0-2 [facility] Comment on above: Performed By: #### B HOLLIE MOODY CDP #### [facility] [address] [place] [id number] Digester Operator: Anselmo Wilkinson MD Eosinophils (Bld) [#/Vol] 0.16 10*3/uL Normal 0.00-0.40 [facility] Comment on above: Performed By: #### B HOLLIE MOODY, CDP #### [facility] [address] [place], [place] [id number] Digester Operator: Anselmo Wilkinson MD Eosinophils/100 WBC (Bld) 3 % Normal 0-5 [facility] Comment on above: Performed By: #### B HOLLIE MOODY, NAYLA #### [facility] [address] [place] [address] Digester Operator: Anselmo Wilkinson MD Erythrocyte distribution width (RBC) [Ratio] 11.8 % Low 12.1-15.2 [facility] Comment on above: Performed By: #### B HOLLIE MOODY, CDP #### [facility] [address] [place], [place] [phone] Digester Operator: Anselmo Wilkinson MD Hematocrit (Bld) [Volume fraction] 45.4 % Normal 36.0-46.0 [facility] Comment on above: Performed By: #### B HOLLIE MOODY, CDP #### [facility] [address] [place], [place] [phone] [employer]ester Operator: Anselmo Wilkinson MD Hemoglobin (Bld) [Mass/Vol] 15.4 g/dL Normal 12.0-16.0 [facility] Comment on above: Performed By: #### B HOLLIE MOODY CDP #### [facility] [address] [place], [place] [id number] Digester Operator: Anselmo Wilkinson MD Immature granulocytes/100 WBC (Bld) 1 % Normal 0-5 [facility] Comment on above: Performed By: #### B HOLLIE MOODY, CDP #### [facility] [address] [place], [place] [phone] Digester Operator: Anselmo Wilkinson MD Lymphocytes (Bld) [#/Vol] 0.90 10*3/uL Low 1.00-4.80 [facility] Comment on above: Performed By: #### B HOLLIE MOODY, CDP #### [facility] [address] [place] [address] Digester Operator: Anselmo Wilkinson MD Lymphocytes/100 WBC (Bld) 16 % Normal 15-40 [facility] Comment on above: Performed By: #### B HOLLIE MOODY, CDP #### [facility] [address] [place] [address] Digester Operator: Anselmo Wilkinson MD MCH (RBC) [Entitic mass] 29.8 pg Normal 26.0-34.0 [facility] Comment on above: Performed By: #### B HOLLIE MOODY, CDP #### [facility] [address] [place] [address] Digester Operator: Anselmo Wilkinson MD MCHC (RBC) [Mass/Vol] 33.9 g/dL Normal 31.0-37.0 [facility] Comment on above: Performed By: #### B HOLLIE MOODY, CDP #### [facility] [address] [place] [address] Digester Operator: Anselmo Wilkinson MD MCV (RBC) [Entitic vol] 88.0 fL Normal 80.0-100.0 [facility] Comment on above: Performed By: #### B HOLLIE MOODY, CDP #### [facility] [address] [place] [address] Digester Operator: Anselmo Wilkinson MD Monocytes (Bld) [#/Vol] 0.51 10*3/uL Normal 0.00-1.00 [facility] Comment on above: Performed By: #### B HOLLIE MOODY, CDP #### [facility] [address] [place] [address] Digester Operator: Anselmo Wilkinson MD Monocytes/100 WBC (Bld) 9 % High 4-8 [facility] Comment on above: Performed By: #### B HOLLIE MOODY, CDP #### [facility] [address] [place] [address] Digester Operator: Anselmo Wilkinson MD Neutrophil (Seg) 71 % Normal 47-75 [facility] Comment on above: Performed By: #### B HOLLIE MOODY, CDP #### [facility] [address] [place], [place] [phone] (510) Digester Operator: Anselmo Wilkinson MD Platelet mean volume (Bld) [Entitic vol] 10.0 fL Normal 6.0-12.0 [facility] Comment on above: Performed By: #### B HOLLIE MOODY, CDP #### [facility] [address] [place] [address] Digester Operator: Anselmo Wilkinson MD Platelets (Bld) [#/Vol] 149 10*3/uL Normal 140-450 [facility] Comment on above: Performed By: #### B HOLLIE MOODY, CDP #### [facility] [address] [place] [address] Digester Operator: Anselmo Wilkinson MD RBC (Bld) [#/Vol] 5.16 10*6/uL Normal 4.00-5.20 [facility] Comment on above: Performed By: #### B HOLLIE MOODY, CDP #### [facility] [address] [place], [place] [phone] (119) Digester Operator: Anselmo Wilkinson MD WBC (Bld) [#/Vol] 5.6 10*3/uL Normal 3.5-11.0 [facility] Comment on above: Performed By: #### B HOLLIE MOODY, CDP #### [facility] [address] [place] [phone] Digester Operator: Anselmo Wilkinson MD CT HEAD WO CONTRASTon [...] Maribel Esteban MD 03/07/24 Final result Normal [facility] Troponinon 03-07-2024 Troponin, High Sens 8 ng/L Normal 0-14 [facility] Comment on above: Result Comment: High Sensitivity Troponin values cannot be compared with other Troponin methodologies. Performed By: #### B MP, TROPI, CDP #### [facility] [address] [place] [address] Digester Operator: Anselmo Wilkinson MD Urinalysis, Routineon 2023 Bilirubin, SemiQt,Ur Negative Normal NEG [facility] Comment on above: Performed By: #### U A #### [facility] [address] [place], [place] [phone] Digester Operator: Anselmo Wilkinson MD Blood, Urine Negative Normal NEG [facility] Comment on above: Performed By: #### U A #### [facility] [address] [place] [address] Digester Operator: Anselmo Wilkinson MD Clarity (U) Clear Normal CLEAR [facility] Comment on above: Performed By: #### U A #### [facility] [address] [place], [place] [phone] Digester Operator: Anselmo Wilkinsno MD Color (U) Yellow Normal YEL [facility] Comment on above: Performed By: #### U A #### [facility] [address] [place], [place] [phone] Digester Operator: Anselmo Wilkinson MD Comment Normal [facility] Comment on above: Performed By: #### U A #### [facility] [address] [place], [place] [phone] Digester Operator: Anselmo Wilkinson MD Glucose Ql (U) Negative Normal NEG [facility] Comment on above: Performed By: #### U A #### [facility] [address] [place], [place] [phone] Digester Operator: Anselmo Wilkinson MD Ketones Ql (U) Negative Normal NEG [facility] Comment on above: Performed By: #### U A #### [facility] [address] [place] [address] Digester Operator: Anselmo Wilkinson MD Leukocyte esterase Test strip Ql (U) Negative Normal NEG [facility] Comment on above: Performed By: #### U A #### [facility] [address] [place] [address] Digester Operator: Anselmo Wilkinson MD Nitrite,Ur Negative Normal NEG [facility] Comment on above: Performed By: #### U A #### [facility] [address] [place] [address] Digester Operator: Anselmo Wilkinson MD PH,Ur 5.0 Normal 5.0-8.0 [facility] Comment on above: Performed By: #### U A #### [facility] [address] [place] [address] Digester Operator: Anselmo Wilkinson MD Protein Ql (U) Negative Normal NEG [facility] Comment on above: Performed By: #### U A #### [facility] [address] [place] [address] Digester Operator: Anselmo Wilkinson MD Spec. [place],Ur 1.010 Normal 1.005-1.[address] [facility] Comment on above: Performed By: #### U A #### [facility] [address] [place] [address] Digester Operator: Anselmo Wilkinson MD Urobilinogen,Ur Normal Normal 0.0-1.0 [facility] Comment on above: Performed By: #### U A #### [facility] [address] [place] [address] Digester Operator: Anselmo Wilkinson MD CBC with Auto Differentialon 08-12-2022 Absolute Eos # 0.[address] [facility] [address] [facility] Absolute Lymph # 1.[address] [facility] Absolute Bullitt # 0.[address] [facility] [facility] Basophils (Bld) [#/Vol] 0.00 10*3/uL [facility] Basophils/100 WBC (Bld) 0 % 0 - 2 % [facility] Differential Type YES [facility] Eosinophils/100 WBC (Bld) 1 % 0 - 5 % [facility] Hematocrit (Bld) [Volume fraction] 39.0 % 36 - 46 % [facility] Hemoglobin (Bld) [Mass/Vol] 12.8 g/dL 12.0 - 16.0 g/dL [facility] Interpretation and review of laboratory results Abnormal [facility] Lymphocytes/100 WBC (Bld) 14 % Low 15 - 40 % [facility] MCH (RBC) [Entitic mass] 29.9 pg 26 - 34 pg [facility] MCHC (RBC) [Mass/Vol] 32.9 g/dL 31 - 37 g/dL B ON [facility] MCV (RBC) [Entitic vol] 90.8 fL 80 - 100 fL [facility] Monocytes/100 WBC (Bld) 6 % 4 - 8 % [facility] Platelet distribution width (Bld) [Ratio] 13.3 % 12.1 - 15.2 % [facility] Platelets (Bld) [#/Vol] 159 10*3/uL [facility] RBC (Bld) [#/Vol] 4.30 10*6/uL 4.0 - 5.2 m/uL B ON [facility] Segmented neutrophils/100 WBC (Bld) 79 % High 47 - 75 % [facility] Segs Absolute 7.70 High [facility] WBC (Bld) [#/Vol] 9.8 10*3/uL [facility] Comprehensive Metabolic Pane judd 08-12-2022 Albumin [Mass/Vol] 3.5 g/dL 3.5 - 5.2 g/dL [facility] ALP [Catalytic activity/Vol] 103 U/L 35 - 104 U/L [facility] ALT [Catalytic activity/Vol] 60 U/L High 5 - 33 U/L [facility] Anion gap [Moles/Vol] 13 mmol/L 9 - 17 mmol/L [facility] AST [Catalytic activity/Vol] 52 U/L High NINF - 32 U/L [facility] Bilirubin [Mass/Vol] 0.4 mg/dL 0.3 - 1.2 mg/dL [facility] Calcium [Mass/Vol] 8.7 mg/dL 8.6 - 10. 4 mg/dL [facility] Chloride [Moles/Vol] 95 mmol/L Low 98 - 107 mmol/L [facility] CO2 [Moles/Vol] 28 mmol/L 20 - 31 mmol/L [facility] Creatinine [Mass/Vol] 0.67 mg/dL 0.50 - 0.90 mg/dL [facility] GFR/1.73 sq M.predicted MDRD (S/P/Bld) [Vol rate/Area] - PINF [facility] Comment on above: These results are not [...] 155 mg/dL High 70 - 99 mg/dL [facility] Interpretation and review of laboratory results Abnormal [facility] Potassium [Moles/Vol] 3.5 mmol/L Low 3.7 - 5.3 mmol/L [facility] Protein [Mass/Vol] 6.5 g/dL 6.4 - 8.3 g/dL [facility] Sodium [Moles/Vol] 136 mmol/L 135 - 144 mmol/L [facility] Urea nitrogen [Mass/Vol] 10 mg/dL 6 - 20 mg/dL [facility] Urea nitrogen/Creatinine (Bld) [Mass ratio] 15 9 - 20 [facility] Vital Signs Date Time Vital Sign Value Performing Clinician Geraldo noriega 08-12-2022 20:02-0400 Body temperature 98.8 [degF] Uvaldo Ibarra MD Work Phone: [facility] 08-12-2022 20:02-0400 Diastolic blood pressure 85 mm[Hg] Uvaldo Ibarra MD Work Phone: [facility] 08-12-2022 20:02-0400 Heart rate 94 /min Uvaldo Ibarra MD Work Phone: [facility] 08-12-2022 20:02-0400 Respiratory rate 20 /min Uvaldo Ibarra MD Work Phone: [facility] 08-12-2022 20:02-0400 SaO2% (BldA) [Mass fraction] 96 % Uvaldo Ibarra MD Work Phone: [facility] 08-12-2022 20:02-0400 Systolic blood pressure 129 mm[Hg] Uvaldo Ibarra MD Work Phone: [facility] 08-12-2022 18:35-0400 Body height 162.6 cm Uvaldo Ibarra MD Work Phone: [facility] 08-12-2022 18:35-0400 Body mass index (BMI) [Ratio] 23.34 kg/m2 Uvaldo Ibarra MD [facility] 08-12-2022 18:35-0400 Body weight 61.69 kg Uvaldo Ibarra MD Work Phone: [facility] [employer] Encounters Encounter Date Encounter Type Care Provider Facility Start: 12-19-2024 ambulatory [facility] Facility:[facility] Start: 03-07-2024 End: 03-07-2024 Emergency department patient visit [facility] Maria De Jesus [facility] Start: 08-12-2022 End: 08-12-2022 Emergency department patient visit Uvaldo Ibarra MD Work Phone: [facility] ED Comment on above: Irritant contact margie matitis, unspecified trigger (Primary Dx) Procedures Date Procedure Procedure Detail Performing Clinician Start: 08-12-2022 Comprehensive metabo lic panel Uvaldo Ibarra MD Work Phone: Plan of Treatment Date Care Activity Detail Author Start: 12-28-2021 Influenza vaccination Flu vaccine (# 1) [facility] [employer] Start: 2013 Screening for malign ant neoplasm of breast Breast cancer screen [facility] [employer] Start: 2013 Shingles vaccine (1 of 2) Shingles vaccine (1 of 2) [facility] Start: 02-20-2008 Screening for malign ant neoplasm of colon [facility] [employer] Start: 2003 Lipid panel Lipids [facility] [employer] Start: 1993 Screening for malign ant neoplasm of cervix [facility] Start: 02-20-1984 Screening for malign ant neoplasm of cervix Pap smear [facility] [employer] Start: 1982 DTaP/Tdap/Td vaccine (1 - Tdap) DTaP/Tdap/Td vaccine ( - Tdap) [facility] Start: 1981 Hepatitis C screening Hepatitis C sc reen [facility] Start: 1978 HIV screening HIV screen [facility] Start: 1975 Depression Screen Depression Screen [facility] [employer] Start: 1963 COVID-19 Vaccine (#1) COVID-19 Vacci ne (#1) [facility] [employer] Payers Date Payer Category Payer Self-pay 2024 Unknown [id number] 2014 Unknown [id number] 1963 Unknown [id number] Unknown [id number] Social History Date Type Detail Facility Start: 08-12-2022 Tobacco smoking stat [facility] Never smoked tobacco [employer] Phone: Start: 08-12-2022 Tobacco use and exposure Smokeless tobacco non-user [employer] Phone: Start: 08-12-2022 Alcohol intake Lifetime non-d soco (finding) [employer] Phone: Start: 1965 Sex Assigned At Not on file B [employer] Phone: Start: 08-02-2022 End: 08-12-2022 Exposure to SARS-CoV-2 (event) Not sure [employer] Phone: Evaluation note Note Date & Type Note Facility Evaluation note Diagnosis Irritant contact dermatitis, unspecified trigger- Primary documented in this encounter [employer] Phone: Hospital Discharge instructions Attachments Note Date & Type Note Facility Hospital Discharge instructions The following attachments cannot be sent through Care Everywhere.Dermatitis (Malay)documented in this encounter [employer] Phone: Summary Purpose Family History No Family History Records FoundNo Family History Records Found Advance Directives No Advanced Directives Records FoundNo Advanced Directives Records Found Additional Source Comments Reason for Visit (unrecogniz ed section and content) Reason Comments Cellulitis Patient states she w as seen in [facility] on Tuesday for cellulitis on the [...] Care Teams (unrecognized sec tion and content) Performance Analyst Relationship Specialty Start Date End Date Gloria Robles, JACKIE [id number] [id number] PCP - General Physician [place] 08/12/22 INFORMATION SOURCE (unrecogn ized section and content) DATE CREATED AUTHOR 03/09/2024 Aiyana cooley DATE CREATED AUTHOR AUTHOR'S ORGANIZ ATION 11/13/2024 [facility] FOR RECORDS PERTAINING TO PATIENTS WHO [...] BE BASED ON THE PRIMARY CLINICAL RECORDS. [employer] provides no warranty or guarantee of the accuracy or completeness of information in this document.
[2024-11-17 19:51] LABS: Troponin T High Sens 4 HR 7 ng/L (<=14)
[2024-11-17] MEDS: QUEtiapine 100 MG Tablet PO (21:32)
[2024-11-17] MEDS: Atorvastatin Calcium 20 MG Tablet PO (21:33)
[2024-11-17] MEDS: Venlafaxine XR 75 MG Capsule PO (21:33)
[2024-11-18 03:30] VITALS: BP 107/69; PULSE 62; RESP 18; TEMP 36.4; O2SAT 98
[2024-11-18 05:23] LABS: Hematocrit 37.1 % (37-47); Hemoglobin 12.1 g/dL (12.0-15.0); Mean Corp Hgb Conc 32.6 g/dL (32-36); Mean Corpuscular Hgb 29.7 pg (27.0-32.0); Mean Corpuscular Volume 90.9 fL (81-99); Mean Platelet Vol. 10.5 fl (6.2-12.0); Platelet Count 123 K/mm3 (150-450); RBC Distribution Width CV 12.1 % (11.6-14.6); RBC Distribution Width SD 39.9 fl (35.1-43.9); Red Blood Count 4.08 M/mm3 (4.2-5.4); White Blood Count 4.2 K/mm3 (4.4-11.0)
[2024-11-18 06:00] LABS: Anion Gap 9 (5-15); BUN 12 mg/dL (4-19); BUN/Creat Ratio 16.6 RATIO (10-20); Calcium,Total 8.8 mg/dL (7.6-11.0); Carbon Dioxide 25.8 mmol/L (21.0-32.0); Chloride 103 mmol/L (98-108); Creatinine, Serum 0.74 mg/dL (0.70-1.20); EST Glomerular Filtration Rate 92 (>60); Estimated Creatinine Clearance 68.94 ml/min (50-250); Glucose 94 mg/dL (70-99); Potassium 3.9 mmol/L (3.3-5.1); Sodium Level 137 mmol/L (133-145)
[2024-11-18 08:48] VITALS: BP 128/75; PULSE 70; RESP 18; TEMP 37.1; O2SAT 95
--- NOTE | 2024-11-18 09:19 | EKG12_ITS ---
Test Reason : Blood Pressure : */* mmHG Vent. Rate : 66 BPM Atrial Rate : 66 BPM P-R Int : 152 ms QRS Dur : 76 ms QT Int : 422 ms P-R-T Axes : 71 84 76 degrees QTcB Int : 442 ms Normal sinus rhythm Normal ECG When compared with ECG of 17-Nov-2024 17:32, MANUAL COMPARISON REQUIRED DATA IS UNCONFIRMED Confirmed by CORI CURRY, CLARE ([id number]), industrial editor BAILEE MASON ([id number]) on 11/20/2024 6:37:24 AM Referred By: Lon Arrington Confirmed By: CLARE PERSAUD MD
--- NOTE | 2024-11-18 09:19 | EKG12_ITS ---
Test Reason : Blood Pressure : */* mmHG Vent. Rate : 66 BPM Atrial Rate : 66 BPM P-R Int : 152 ms QRS Dur : 76 ms QT Int : 422 ms P-R-T Axes : 71 84 76 degrees QTcB Int : 442 ms Normal sinus rhythm Normal ECG When compared with ECG of 17-Nov-2024 17:32, MANUAL COMPARISON REQUIRED DATA IS UNCONFIRMED Confirmed by CORI CURRY, CLARE ([id number]), communications editor BAILEE MASON ([id number]) on 11/20/2024 6:37:24 AM Referred By: Lon Arrington Confirmed By: CLARE PERSAUD MD
--- NOTE | 2024-11-18 09:27 | PN.HOSP_ITS ---
Reason for Visit Reason for Visit: Diagnoses Chest pain, unspecified (11/17/24) Objective Data Objective Data Vital Signs: Vital Signs Temp Pulse Resp BP Pulse Ox O2 Del Method 98.7 F 70 18 128/75 H 95 Room Air 11/18/24 08:48 11/18/24 08:48 11/18/24 08:48 11/18/24 08:48 11/18/24 08:48 11/18/24 08:48 Oxygen Delivery Method Room Air Weight: 141 lb 5.061 oz Body Mass Index (BMI) 24.3 Lab / Micro Data 11/18/24 04:54 11/18/24 04:54 Labs: Laboratory Results - last 24 hr 11/17/24 14:20: WBC 3.7 L, RBC 4.52, Hgb 13.3, Hct 40.9, MCV 90.5, MCH 29.4, MCHC 32.5, RDW Std Deviation 39.6, RDW Coeff of Lisa 12.0, Plt Count 138 L, MPV 10.6, Immature Gran % (Auto) 0.800, Neut % (Auto) 54.3, Lymph % (Auto) 28.8, M kristie % (Auto) 13.7 H, Eos % (Auto) 1.9, Baso % (Auto) 0.5, Absolute Neuts (auto) 2.0, Absolute Lymphs (auto) 1.07, Nucleated RBC % 0, PT 12.8, INR 0.9, APTT 24.6, D-Dimer Quant (PE/DVT) 1.61 H*, Sodium 139, Potassium 4.0, Chloride 102, Carbon Dioxide 26.4, Anion Gap 11, BUN 13, Creatinine 0.78, Estim Creat Clear Calc 65.40, Est GFR (MDRD) Non-Af 86, BUN/Creatinine Ratio 16.2, Glucose 113 H, Calcium 9.1, Troponin T High Sens 7 11/17/24 16:20: Troponin T Hi Sens 2 Hr 6 11/17/24 19:19: Troponin T Hi Sens 4Hr 7 11/18/24 04:54: WBC 4.2 L, RBC 4.08 L, Hgb 12.1, Hct 37.1, MCV 90.9, MCH 29.7, MCHC 32.6, RDW Std Deviation 39.9, RDW Coeff of Lisa 12.1, Plt Count 123 L, MPV 10.5, Sodium 137, Potassium 3.9, Chloride 103, Carbon Dioxide 25.8, Anion Gap 9, BUN 12, Creatinine 0.74, Estim Creat Clear Calc 68.94, Est GFR (MDRD) Non-Af 92, BUN/Creatinine Ratio 16.6, Glucose 94, Calcium 8.8 Radiography Diagnostic Testing: Radiology Impression Chest X-Ray 11/17/24 14:23 IMPRESSION: Bibasilar opacities likely imaging artifact from pectus excavatum. No definite focal consolidations. Moderate cardiomegaly. Reading Location: [id number] Chest CTA 11/17/24 15:02 IMPRESSION: 1. No acute pulmonary embolism. 2. Severe pectus excavatum deformity. Reading Location: [id number] Physical Exam Narrative Seen and examined Patient admitted with chest pain intermittently for about few months ago but more frequent in the last 2 weeks along with shortness of breath. Described her chest pain as more sharp 1 time in the past referred to right show and few x 2 left shoulder but otherwise localized. Multiple EKGs negative for ST deviation or acute changes. 3 high-sensitivity normal troponins. Physical exam General: Alert, Oriented x3, Cooperative HEENT: Atraumatic, PERRLA, EOMI, Normocephalic. Oral: No Gingival or Mucosal Lesions/ Ulcerations Neck: Supple, No JVD, Negative Carotid Bruits Chest wall/Lungs: Air entry diminished in bilateral lung bases. No crepitation/rhonchi Cardiovascular: Regular rate and rhythm, Normal S1,S2, No M/G/R Abdomen: Bowel Sounds Present, Soft, Non Tender, Non-Distended : No dysuria. No renal angle tenderness. No suprapubic tenderness. Extremities: No edema, Capillary Refill Less than 3 Seconds Skin: No rashes, No breakdown Musculoskeletal: No Tenderness to Palpation of Joints or Extremities Neurological: Cranial nerves II-XII grossly intact, DTR 2+/4. No acute focal neurological deficit. Psych/Mental Status: Flat affect Assessment & Plan Assessment/Plan (1) Chest pain: PLAN: Plan Patient is a 59-year-old female who presented to [facility] ED on 11/17/2024 with chest pain. 1. Chest pain, ACS rule out ? Admit under observation status to PCU. Unclear etiology for chest pain at this time. Suspect severe pectus excavatum deformity may be contributing. Hemodynamically stable in the ED. EKG with normal sinus rhythm, no ST changes. Troponins negative x 3. CTA chest with no PE, clear lung almanza. 11/18: JORGE risk score calculated 2. Twelve-lead EKG NSR. 3 EKGs so far all have T wave inversion in V1 and V2 unclear might be from the past. No dynamic ST-T changes. 3 troponins are negative. She had left-sided localized chest pain in the morning. Most likely musculoskeletal. Motrin, pantoprazole, muscle relaxant Flexeril and Xanax ordered. Nuclear stress test and echo tomorrow. 2. Severe pectus excavatum deformity ? Noted on CTA chest. Has been present since . Has discussed with either PCP or surgeon about possible need for surgical plate placement for this. No inpatient needs, continue outpatient follow-up. 3. Hypertension ? Will hold home Toprol for stress test. Will be okay to resume after that. 4. Hyperlipidemia ? Continue home statin. 5. Anxiety/depression ? Continue home venlafaxine and quetiapine. Mild thrombocytopenia, platelet count 138K, 123K. Monitor DVT prophylaxis: Lovenox CODE STATUS: Full code, verified Expected disposition: Home, 1 to 2 days Laboratory Results 11/17/24 14:20: WBC 3.7 L, RBC 4.52, Hgb 13.3, Hct 40.9, MCV 90.5, MCH 29.4, MCHC 32.5, RDW Std Deviation 39.6, RDW Coeff of Lisa 12.0, Plt Count 138 L, MPV 10.6, Immature Gran % (Auto) 0.800, Neut % (Auto) 54.3, Lymph % (Auto) 28.8, M kristie % (Auto) 13.7 H, Eos % (Auto) 1.9, Baso % (Auto) 0.5, Absolute Neuts (auto) 2.0, Absolute Lymphs (auto) 1.07, Nucleated RBC % 0, PT 12.8, INR 0.9, APTT 24.6, D-Dimer Quant (PE/DVT) 1.61 H*, Sodium 139, Potassium 4.0, Chloride 102, Carbon Dioxide 26.4, Anion Gap 11, BUN 13, Creatinine 0.78, Estim Creat Clear Calc 65.40, Est GFR (MDRD) Non-Af 86, BUN/Creatinine Ratio 16.2, Glucose 113 H, Calcium 9.1, Troponin T High Sens 7 11/17/24 16:20: Troponin T Hi Sens 2 Hr 6 11/17/24 19:19: Troponin T Hi Sens 4Hr 7 11/18/24 04:54: WBC 4.2 L, RBC 4.08 L, Hgb 12.1, Hct 37.1, MCV 90.9, MCH 29.7, MCHC 32.6, RDW Std Deviation 39.9, RDW Coeff of Lisa 12.1, Plt Count 123 L, MPV 10.5, Sodium 137, Potassium 3.9, Chloride 103, Carbon Dioxide 25.8, Anion Gap 9, BUN 12, Creatinine 0.74, Estim Creat Clear Calc 68.94, Est GFR (MDRD) Non-Af 92, BUN/Creatinine Ratio 16.6, Glucose 94, Calcium 8.8 Charges/Coding Visit Charges Inpatient E&M: 03530 Subs Hosp L2
[2024-11-18] MEDS: Acetaminophen 325 MG Tablet 650 MG PO (10:22)
[2024-11-18] MEDS: Enoxaparin 40 MG/0.4 ML Syringe SC (10:22)
[2024-11-18 13:18] VITALS: BP 137/80; PULSE 83; RESP 18; TEMP 36.6; O2SAT 95
[2024-11-18] MEDS: ALPRAZolam 0.25 MG Tablet PO (14:25)
[2024-11-18] MEDS: Pantoprazole Sodium 40 MG Tablet PO (14:25)
[2024-11-18] MEDS: cycloBENZAPRine HCl 5 MG TABLET PO (14:26)
[2024-11-18 18:54] VITALS: BP 158/70; PULSE 80; RESP 18; TEMP 37.1; O2SAT 95
[2024-11-18 21:25] VITALS: BP 154/86; PULSE 86; RESP 16; TEMP 37; O2SAT 97
[2024-11-18] MEDS: 0.9% Saline Lock 10 ML Syringe IV (21:29)
[2024-11-18] MEDS: Venlafaxine XR 75 MG Capsule PO (21:30)
[2024-11-18] MEDS: QUEtiapine 100 MG Tablet PO (21:30)
[2024-11-18] MEDS: Atorvastatin Calcium 20 MG Tablet PO (21:30)
[2024-11-19 03:12] VITALS: BP 125/66; PULSE 87; RESP 16; TEMP 36.8; O2SAT 96
[2024-11-19 06:15] VITALS: BP 112/86; PULSE 69; RESP 16; TEMP 36.4; O2SAT 94
[2024-11-19 06:32] LABS: Cholesterol 202 mg/dL (<=200); High Density Lipoprotein 47 mg/dL; Low Density Lipoprotein Calc. 119 mg/dL; Triglycerides 181 mg/dL; Very Low Density Lipoprotein 36 mg/dL (5-40); cholesterol:hdl ratio screen 4.31
[2024-11-19 12:00] VITALS: BP 166/96; PULSE 70; RESP 16; TEMP 36.6; O2SAT 98
[2024-11-19] MEDS: Pantoprazole Sodium 40 MG Tablet PO (12:03)
--- NOTE | 2024-11-19 13:35 | STRESSREP ---
Stress Test Report Pharmacologic myocardial perfusion stress test. 59-year-old lady with a history of chest pain Resting EKG demonstrates sinus rhythm with a rate of 75 bpm. Resting blood pressure is 138/98 mmHg. 0.4 mg of regadenoson was infused per usual protocol followed by rapid intravenous saline flush injection. Continuous EKG monitoring was performed. The maximum heart rate was 129 bpm which was 81% of max impacted heart rate the maximum workload was 1 metabolic equivalent. At rest there were no ST or T wave changes noted to suggest ischemia and at peak infusion nonspecific ST changes were noted which did not meet the criteria for ischemia. No clinical angina is noted. The final blood pressure was 112/80 mmHg. Myocardial perfusion protocol. 12.0 mCi of technetium 99m sestamibi was injected at rest. 0.4 mg of regadenoson was infused per usual protocol. At peak infusion 34.1 mCi of technetium 99m sestamibi was injected stress images were obtained stress and rest images were reconstructed and compared in the short axis vertical long and horizontal long axis. Gated images were also obtained. Perfusion SPECT analysis: Review of the stress images demonstrate normal uptake of tracer noted in all areas of the myocardium. The resting images similar demonstrated normal uptake of tracer noted in all areas of the myocardium. No areas of reversibility are noted to suggest ischemia and no previous infarct is noted. Gated SPECT analysis: The gated ejection fraction is 75%. Conclusion: Normal pharmacologic myocardial perfusion stress test. Preserved ejection fraction.
--- NOTE | 2024-11-19 13:42 | DCINST_ITS ---
Discharge Instructions Diet Discharge Diet: No restrictions DC O2, CPAP, BIPAP needs Home O2 Discharge instructions: No Dressing / Incision Discharge Activity: No Restrictions Follow Up Care Test Results: Test results from this visit will be discussed in further detail at your follow- up appointment, if applicable. Discharge Plan Admission Admit Date/Time: 11/17/24 18:06 Primary Reason for Your Visit: Chest pain Attending Provider: Lon Arrington Primary Care Provider: Cr Vazquez Consulting Providers: Lon Arrington; Dick Chau Instructions Additional Instructions / Restrictions: Please start taking Protonix daily as below. Follow-up with your primary care doctor to discuss possible management options for your severe chest deformity. Continue other home medications as normal. Discharge Orders/Prescriptions Prescriptions: New pantoprazole 40 mg Tablet,Delayed Release (Dr/Ec) 40 mg PO DAILY 30 Days Qty: 30 2RF Continued venlafaxine 75 mg capsule,extended release 24hr 75 mg PO QPM metoprolol succinate 50 mg tablet extended release 24 hr 25 mg PO DAILY quetiapine 100 mg tablet 100 mg PO QHS rosuvastatin 10 mg tablet 10 mg PO DAILY Referrals / Follow Up: Cr Vazquez, PAKarolynC [Primary Care Provider] - Disposition Disposition (needs filled in before D/C Order can be placed): Home, Self Care
--- NOTE | 2024-11-19 13:43 | DS.PCM_ITS ---
Providers Date of Admission: 11/17/24 Primary Care Physician: Cr Vazquez PA-C Reason For Visit: CHEST PAIN Diagnosis Discharge Diagnosis (1) Chest pain: Status: Acute Code(s): R07.9 - Chest pain, unspecified Plan Patient is a 59-year-old female who presented to [facility] ED on 11/17/2024 with chest pain. 1. Chest pain, ACS rule out ? Admit under observation status to PCU. Unclear etiology for chest pain at this time. Suspect severe pectus excavatum deformity may be contributing. Hemodynamically stable in the ED. EKG with normal sinus rhythm, no ST changes. Troponins negative x 3. CTA chest with no PE, clear lung almanza. Echocardiogram and nuclear stress test ordered for further evaluation. 2. Severe pectus excavatum deformity ? Noted on CTA chest. Has been present since . Has discussed with either PCP or surgeon about possible need for surgical plate placement for this. No inpatient needs, continue outpatient follow-up. 3. Hypertension ? Will hold home Toprol for stress test. Will be okay to resume after that. 4. Hyperlipidemia ? Continue home statin. 5. Anxiety/depression ? Continue home venlafaxine and quetiapine. DVT prophylaxis: Lovenox CODE STATUS: Full code, verified Expected disposition: Home, 1 to 2 days Total clinical time spent by myself addressing the patient's medical issues, reviewing all the data, and collaborating with patient's care team: 55 minutes. Medications at Discharge Home Medications metoprolol succinate 50 mg tablet,extended release 24 hr 25 mg PO DAILY 11/17/24 quetiapine 100 mg tablet 100 mg PO QHS 11/17/24 rosuvastatin 10 mg tablet 10 mg PO DAILY 11/17/24 venlafaxine 75 mg capsule,extended release 24 hr 75 mg PO QPM 11/17/24 Weight / BMI Weight Weight: 64.1 kg Body Mass Index (BMI) 24.3 ABG / Lab / Microbiology Data 11/18/24 04:54 11/18/24 04:54 Laboratory: Laboratory Results - last 24 hr 11/19/24 05:12: Triglycerides 181, Cholesterol 202 H, LDL Cholesterol, Calc 119, VLDL Cholesterol 36, HDL Cholesterol 47, Cholesterol/HDL Ratio 4.31, TSH 1.590 Radiography Diagnostic Testing: Radiology Impression Echocardiogram 11/17/24 18:10 Interpretation Summary Normal LV size. Left ventricular systolic function is normal. The left ventricular ejection fraction is 65 %. Stage 1 diastolic dysfunction. Bileaflet diffuse mitral valve thickening. Ordering Physician: Lon Arrington Referring Physician: Lon Arrington Performed By: Raymond Price RCS Meaningful Use Info Ischemic Stroke Statin Dosing Therapy Reference: STATIN DOSE THERAPY REFERENCE: * Patients > 75 years receive moderate or high dose statin therapy. * Patients 75 years or YOUNGER should receive HIGH intensity statin dose unless contraindicated. You will be required to document reason for non-treatment if statin daily dose does not meet guidelines. HIGH DOSE STATIN THERAPY DAILY Atorvastatin > than or = to 40 mg Rosuvastatin > than or = to 20 mg Amlodipine + Atorvastatin > than or = to 2.5/40 mg Ezetimibe + Simvastatin 10/80 mg Simvastatin 80mg Discharge Plan Admission Admit Date/Time: 11/17/24 18:06 Attending Provider: Lon Arrington Primary Care Provider: Cr Vazquez Consulting Providers: Lon Arrington; Dick Chau Discharge Orders/Prescriptions Prescriptions: No Action venlafaxine 75 mg capsule,extended release 24hr 75 mg PO QPM metoprolol succinate 50 mg tablet extended release 24 hr 25 mg PO DAILY quetiapine 100 mg tablet 100 mg PO QHS rosuvastatin 10 mg tablet 10 mg PO DAILY Referrals / Follow Up: Cr Vazquez PA-C [Primary Care Provider] -
--- NOTE | 2024-11-19 13:43 | PCM.DC.SUM ---
Providers Date of Admission: 11/17/24 Date of Discharge: 11/19/24 Primary Care Physician: Cr Vazquez PA-C Reason For Visit: CHEST PAIN Diagnosis Discharge Diagnosis (1) Chest pain: Status: Acute Code(s): R07.9 - Chest pain, unspecified Medications at Discharge Home Medications metoprolol succinate 50 mg tablet,extended release 24 hr 25 mg PO DAILY blood pressure 11/17/24 quetiapine 100 mg tablet 100 mg PO QHS mental health 11/17/24 rosuvastatin 10 mg tablet 10 mg PO DAILY cholesterol 11/17/24 venlafaxine 75 mg capsule,extended release 24 hr 75 mg PO QPM mental health 11/17/24 pantoprazole 40 mg tablet,delayed release 40 mg PO DAILY 30 days #30 tabs 11/19/24 Hospital Course Summary of Care Provided Minutes Spent on Discharge: 35 Hospital Course: Patient is a 59-year-old female who presented to [facility] ED on 11/17/2024 with chest pain. Hospital course as noted below. Patient discharged home in stable condition on 11/19. 1. Chest pain, ACS ruled out ? Presented with chest pain that reportedly worsened with exertion and improved with rest. EKG with normal sinus rhythm, no ST changes. Troponins negative x 3. CTA chest with no PE, clear lung almanza. Echo showed EF 65%, stage I diastolic dysfunction, no other concerning findings. Stress test was normal. Etiology is most likely musculoskeletal; recommend conservative management on discharge. Severe pectus excavatum deformity may be contributing, recommend outpatient follow-up as below. Stable for discharge home on 11/19. 2. Severe pectus excavatum deformity ? Noted on CTA chest. Has been present since . Has discussed with either PCP or surgeon about possible need for surgical plate placement for this. No inpatient needs, recommend close outpatient follow-up for this. 3. Hypertension ? Continue home Toprol. 4. Hyperlipidemia ? Continue home statin. 5. Anxiety/depression ? Continue home venlafaxine and quetiapine. Total clinical time spent by myself addressing the patient's medical issues, reviewing all the data, and collaborating with patient's care team: 35 minutes. Physical Exam Const alert, oriented x3, no apparent distress, average body habitus, healthy appearing and well nourished Constitutional Narrative: Upper middle-aged female, mildly anxious appearing but otherwise sitting back comfortably in bed, conversing normally, in no acute distress. General Appearance: cooperative, comfortable, well kempt and well developed HEENT normocephalic, head/scalp atraumatic, hearing grossly normal bilaterally, nasal mucous membranes and turbinates normal and moist oral mucous membranes Eyes PERRL, EOMs intact bilaterally and conjunctivae normal Neck full ROM Chest Chest Narrative: Severe pectus excavatum deformity noted. Patient does report mild tenderness with palpation in the mid chest area, similar to on admission. Resp normal respiratory effort, normal air movement, no use of accessory muscles and clear to auscultation bilaterally Cardio regular rate, regular rhythm, no murmurs and peripheral pulses 2+ throughout GI normal to inspection, nondistended, normoactive bowel sounds, soft to palpation, non-tender and non-distended Back/Spine normal ROM Extremity normal to inspection, full ROM and no pedal edema Skin no rashes or lesions noted Psych mental status grossly normal Weight / BMI Weight Weight: 64.1 kg Body Mass Index (BMI) 24.3 ABG / Lab / Microbiology Data 11/18/24 04:54 11/18/24 04:54 Laboratory: Laboratory Results - last 24 hr 11/19/24 05:12: Triglycerides 181, Cholesterol 202 H, LDL Cholesterol, Calc 119, VLDL Cholesterol 36, HDL Cholesterol 47, Cholesterol/HDL Ratio 4.31, TSH 1.590 Radiography Diagnostic Testing: Radiology Impression Echocardiogram 11/17/24 18:10 Interpretation Summary Normal LV size. Left ventricular systolic function is normal. The left ventricular ejection fraction is 65 %. Stage 1 diastolic dysfunction. Bileaflet diffuse mitral valve thickening. Ordering Physician: Lon Arrington Referring Physician: Lon Arrington Performed By: Raymond Price RCS D/C Instructions DC O2, CPAP, BIPAP Needs Home O2 Discharge instructions: No Meaningful Use Info Meaningful Use Meaningful Use Diagnoses (Choose all that apply): None applicable Ischemic Stroke Statin Dosing Therapy Reference: STATIN DOSE THERAPY REFERENCE: * Patients > 75 years receive moderate or high dose statin therapy. * Patients 75 years or YOUNGER should receive HIGH intensity statin dose unless contraindicated. You will be required to document reason for non-treatment if statin daily dose does not meet guidelines. HIGH DOSE STATIN THERAPY DAILY Atorvastatin > than or = to 40 mg Rosuvastatin > than or = to 20 mg Amlodipine + Atorvastatin > than or = to 2.5/40 mg Ezetimibe + Simvastatin 10/80 mg Simvastatin 80mg Discharge Plan Admission Admit Date/Time: 11/17/24 18:06 Primary Reason for Your Visit: Chest pain Attending Provider: Lon Arrington Primary Care Provider: Cr Vazquez Consulting Providers: Lon Arrington; Dick Chau Instructions Additional Instructions / Restrictions: Please start taking Protonix daily as below. Follow-up with your primary care doctor to discuss possible management options for your severe chest deformity. Continue other home medications as normal. Discharge Orders/Prescriptions Prescriptions: New pantoprazole 40 mg Tablet,Delayed Release (Dr/Ec) 40 mg PO DAILY 30 Days Qty: 30 2RF Continued venlafaxine 75 mg capsule,extended release 24hr 75 mg PO QPM metoprolol succinate 50 mg tablet extended release 24 hr 25 mg PO DAILY quetiapine 100 mg tablet 100 mg PO QHS rosuvastatin 10 mg tablet 10 mg PO DAILY Referrals / Follow Up: Cr Vazquez PA-C [Primary Care Provider] - Disposition Disposition (needs filled in before D/C Order can be placed): Home, Self Care Charges/Coding Visit Charges Inpatient E&M: 09706 Disch Hosp >30min
--- NOTE | 2024-11-19 14:23 | CASEMGMT ---
Patient has order for discharge. RN CM in to discuss needs at discharge. Patient denies needs or help at discharge. Patient had no further questions or concerns.
--- NOTE | 2024-11-19 14:47 | PHA.DC_ITS ---
Pharmacy [facility] Counseling Pharmacy Service has performed discharge medication reconciliation and counseling for this patient. The patient's discharge medication list was reviewed for discrepancies and discrepancies were resolved. The patient was counseled on the following discharge medications and changes in medications for homegoing were reviewed. The Reason for Use, instructions for use, and potential side effects were reviewed for all new medications. The patient's questions regarding all of their medications were answered. 1. Pantoprazole 40 mg PO daily The patient was able to verbally demonstrate an understanding of their discharge medications. Medications at Discharge Home Medications metoprolol succinate 50 mg tablet,extended release 24 hr 25 mg PO DAILY blood pressure 11/17/24 quetiapine 100 mg tablet 100 mg PO QHS mental health 11/17/24 rosuvastatin 10 mg tablet 10 mg PO DAILY cholesterol 11/17/24 venlafaxine 75 mg capsule,extended release 24 hr 75 mg PO QPM mental health 11/17/24 pantoprazole 40 mg tablet,delayed release 40 mg PO DAILY 30 days #30 tabs 11/19
== END 2024-11-19 14:58 | disposition home or self-care (01) ==
LOC: ED 14:53 → PCU 18:19
PROVIDERS: Internal Medicine; Admitting Provider Hospitalist; Emergency Provider Emergency Medicine; PCP Physician Assistant; Referring Provider Hospitalist; Visit Provider Hospitalist
DX: R07.89 Other chest pain (principal); F41.9 Anxiety disorder, unspecified; Z82.49 Family history of ischemic heart disease and other diseases of the circulatory system; I10 Essential (primary) hypertension; Q67.6 Pectus excavatum; E78.00 Pure hypercholesterolemia, unspecified; R06.09 Other forms of dyspnea; R42 Dizziness and giddiness; Z79.899 Other long term (current) drug therapy; R94.31 Abnormal electrocardiogram [ECG] [EKG]; F32.A Depression, unspecified
CPT/HCPCS: 36415; 71045; 71275; 78452; 80048; 80061; 84443; 84484; 85025; 85027; 85379; 85610; 85730; 93005; 93017; 93306; 96372; 99221; 99285; A9500; Q9967; A4216; G0378; J2785